=== PATIENT | female | born 1930 | race Caucasian/White ===

== ENCOUNTER 2016-09-21 19:06 | Emergency (ER) | payer MEDICARE, BC ==
--- NOTE | 2016-09-21 20:59 | EDM.PDOC ---
ED HISTORY OF PRESENT ILLNESS - General Chief Complaint: Respiratory Problem Stated Complaint: Shortness of Breath Time Seen by Provider: 09/21/16 20:23 Source of Information: Reports: Patient, Family, RN, RN notes reviewed History Limitations: Reports: No limitations - History of Present Illness INITIAL COMMENTS - FREE TEXT/NARRATIVE: Patient presents to the ED at [facility] complaining of shortness of breath that started early today. Patient has a history of CHF and Pneumonia. Family is concerned "there may be trouble." Daughter states the patient took her morning medications later this afternoon. No cough. No chest pain. Patient has not noticed any increase in LE edema. Symptom Onset Date: 09/21/16 Timing/Duration: Reports: Getting worse Severity: mild Location, General: Reports: chest - Related Data Allergies/ADRs: Allergies Allergy/AdvReac Type Severity Reaction Status Date / Time atorvastatin calcium Allergy Other Verified 04/25/16 21:35 [From Lipitor] Home Meds: Home Meds Levothyroxine [Synthroid] 88 mcg PO ACBREAKFAST 08/14/14 [History] Metoprolol Succinate 50 mg PO DAILY 08/14/14 [History] Donepezil [Aricept] 10 mg PO BEDTIME 01/28/15 [History] amLODIPine [Norvasc] 5 mg PO DAILY tablet 02/03/15 [Rx] Loperamide [Imodium] 2 mg PO BEDTIME 02/14/15 [History] Potassium Chloride [Klor-Con M20] 20 meq PO DAILY 02/14/15 [History] Nystatin [Nystatin Crm] 15 gm TOP TID 04/25/16 [History] Acetaminophen [Tylenol] 650 mg PO Q4H PRN 04/29/16 [History] Furosemide 10 mg PO QAM 04/30/16 [History] Fish Oil/Cabot-3 Fatty Acids [Fish Oil 1,000 MG] 1,000 mg PO BID 05/01/16 [ History] Multivitamin [Daily Multiple Vitamin] 1 tab PO QPM 05/01/16 [History] Past Medical History HEENT History: Reports: Hard of hearing, Impaired vision Cardiovascular History: Reports: Heart Failure, High cholesterol, Hypertension Respiratory History: Reports: None Gastrointestinal History: Reports: Other (see below) Other Gastrointestinal History: lymphocytic colitis Genitourinary History: Reports: Chronic renal insuffiency Other OB/BYN History: x2, hysterectomy Musculoskeletal History: Reports: Other (see below) Other Musculoskeletal History: R leg with pins and plates long time ago. Neurological History: Reports: Other (see below) Other Neuro History: Very mild memory loss and recently on aricept. Psychiatric History: Reports: None Endocrine/Metabolic History: Reports: Hypothyroidism Hematologic History: Reports: None Immunologic History: Reports: None Oncologic (Cancer) History: Reports: Other (see below) Other Oncologic History: forehead, face skin cancer Other Dermatologic History: erick intertrigo beneath breasts - Infectious Disease History Infectious Disease History: Reports: None - Past Surgical History Female Surgical History: Reports: Hysterectomy Musculoskeletal Surgical History: Reports: Other (see below) Other Musculoskeletal Surgeries/Procedures:: fracture surgery Social & Family History - Family History Family Medical History: Noncontributory - Tobacco Use Smoking Status *Q: Unknown Ever Smoked Years of Tobacco use: 20 Second Hand Smoke Exposure: No - Caffeine Use Caffeine Use: Reports: Coffee Caffeine Use Comment: 2 cups in the morining - Alcohol Use Days Per Week of Alcohol Use: 0 - Recreational Drug Use Recreational Drug Use: No - Living Situation & Occupation Living situation: Reports: (Lives alone. Her daughter helps her with meals and checks on her multiple times/week in person and daily by telephone. She has been using a walker for ambulation just since she fell 2 weeks ago. Otherwise independent.) ED ROS GENERAL - Review of Systems Review Of Systems: See Below Constitutional: Reports: weakness. Denies: fever, chills Respiratory: Reports: Shortness of Breath. Denies: Cough, Sputum Cardiovascular: Reports: Dyspnea on exertion. Denies: Chest pain, Palpitations GI/Abdominal: Denies: Abdominal pain, Diarrhea, Nausea, Vomiting Skin: Reports: no symptoms Neurological: Denies: Dizziness, Headache, Numbness, Paresthesia, Tingling ED EXAM, GENERAL - Physical Exam Exam: See Below Exam Limited By: No limitations General Appearance: alert, mild distress Respiratory/Chest: no respiratory distress, crackles, prolonged expiration Cardiovascular: normal peripheral pulses, regular rate, rhythm Peripheral Pulses: 1+: radial (L), radial (R) GI/Abdominal: normal bowel sounds, soft, non tender Neurological: alert, oriented Skin Exam: Warm, Dry, Intact, Normal color, No rash Course - Vital Signs Last Recorded V/S: Last Vital Signs Temp 37.0 C 04/01/17 20:56 Pulse 55 L 09/21/16 20:56 Resp 20 09/21/16 20:56 BP 116/67 09/21/16 20:56 Pulse Ox 97 09/21/16 20:56 - Orders/Labs/Meds Orders: Active Orders 24 hr Category Date Time Status Chest 2V [CR] Stat Exams 09/21/16 20:59 Taken Sodium Chloride 0.9% [Saline Flush] Med 09/21/16 21:00 Active 10 ml FLUSH ASDIRECTED PRN Peripheral IV Insertion Adult [OM.PC] Routine Oth 09/21/16 21:00 Ordered Medication Orders Sodium Chloride (Saline Flush) 10 ml FLUSH ASDIRECTED PRN PRN Reason: Keep Vein Open Labs: Laboratory Tests 09/21/16 09/21/16 Range/Units 21:20 21:20 WBC 7.1 (4.0-10.0) x10^3/uL RBC 3.99 L (4.00-5.50) x10^6/uL Hgb 12.2 (12.0-16.0) g/dL Hct 36.8 (33.0-47.0) % MCV 92.2 (78.0-93.0) fL MCH 30.6 (26.0-32.0) pg MCHC 33.2 (32.0-36.0) g/dL RDW Coeff of Tyrell 14.5 (10.0-15.0) % Plt Count 229 (130-400) x10^3/uL Neut % (Auto) 63.6 (50.0-80.0) % Lymph % (Auto) 23.4 L (25.0-50.0) % [place] % (Auto) 10.5 (2.0-11.0) % Eos % (Auto) 2.1 (0.0-4.0) % Baso % (Auto) 0.4 (0.2-1.2) % Sodium 144 (136-145) mmol/L Potassium 4.6 (3.5-5.1) mmol/L Chloride 108 H (98-107) mmol/L Carbon Dioxide 25 (21-32) mmol/L BUN 31 H (7-18) mg/dL Creatinine 1.2 H (0.55-1.02) mg/dL Est Cr Clr Drug Dosing 34.57 mL/min Estimated GFR (MDRD) 42 Glucose 92 (74-106) mg/dL Calcium 9.1 (8.5-10.1) mg/dL Corrected Calcium 9.74 (8.5-10.1) mg/dL Phosphorus 4.9 H (2.6-4.7) mg/dL Magnesium 2.2 (1.8-2.4) mg/dL Total Bilirubin 0.2 (0.2-1.0) mg/dL AST 13 L (15-37) U/L ALT 28 (14-59) U/L Alkaline Phosphatase 70 (46-116) U/L Creatine Kinase 72 (26-192) U/L Creatine Kinase Index 2.5 (0.0-4.0) % CK-MB (CK-2) 1.8 (0.0-3.6) ng/mL Troponin I < 0.017 (<=0.056) ng/mL B-Natriuretic Peptide 475 H (<=450) pg/mL Total Protein 6.7 (6.4-8.2) g/dL Albumin 3.2 L (3.4-5.0) g/dL Globulin 3.5 Albumin/Globulin Ratio 0.91 Meds: Medications Generic Name Dose Route Start Last Admin Trade Name Freq PRN Reason Stop Dose Admin Sodium Chloride 10 ml 09/21/16 21:00 Saline Flush FLUSH ASDIRECTED PRN Keep Vein Open - Radiology Interpretation Free Text/Narrative:: Mild cardiomegaly, unchanged No vascular congestion The lungs are clear Mild elevation of left hemidiaphragm Bones unremarkable No pleural effusion Departure - Departure Time of Disposition: 22:30 Disposition: Home, Self-Care 01 Condition: good Clinical Impression: Shortness of breath Congestive heart failure Qualifiers: Congestive heart failure type: unspecified congestive heart failure type Congestive heart failure chronicity: chronic Qualified Code(s): I50.9 - Heart failure, unspecified Instructions: Shortness of Breath, [id number], Heart Failure Referrals: Meme Camargo PA-C [Primary Care Provider] - Forms: ED Department Discharge Additional Instructions: 1. Stay well hydrated and rest 2. Continue your same medications without any changes 3. See your Primary as symptoms warrant - Problem List Review Problem List Initiated/Reviewed/Updated: Yes - My Orders Last 24 Hours: My Active Orders 09/21/16 20:59 Chest 2V [CR] Stat 09/21/16 21:00 Sodium Chloride 0.9% [Saline Flush] 10 ml FLUSH ASDIRECTED PRN Peripheral IV Insertion Adult [OM.PC] Routine - Assessment/Plan Last 24 Hours: My Active Orders 09/21/16 20:59 Chest 2V [CR] Stat 09/21/16 21:00 Sodium Chloride 0.9% [Saline Flush] 10 ml FLUSH ASDIRECTED PRN Peripheral IV Insertion Adult [OM.PC] Routine
[2016-09-21] MEDS ORDERED: Sodium Chloride 0.9% 10 ML Syringe FLUSH PRN (21:00)
[2016-09-21 21:01] VITALS: BP 116/67
[2016-09-21 22:07] LABS: CHLORIDE,CL 108 mmol/L (98-107); SODIUM,NA 144 mmol/L (136-145)
== END 2016-09-21 23:00 | disposition home or self-care (01) ==
LOC: VM.ED 19:06
DX: I50.9 Heart failure, unspecified (principal); E78.00 Pure hypercholesterolemia, unspecified; I10 Essential (primary) hypertension; E03.9 Hypothyroidism, unspecified; Z90.710 Acquired absence of both cervix and uterus; Z79.899 Other long term (current) drug therapy
CPT/HCPCS: 36415; 71020; 80053; 82550; 82553; 83735; 83880; 84100; 84484; 85025; 99284-GF; 99285

== ENCOUNTER 2016-10-10 13:25 | Emergency (ER) | payer MEDICARE, BC ==
[2016-10-10] MEDS ORDERED: GI Cocktail Oral Solution 30 ML PO ONE (13:39)
[2016-10-10 13:50] VITALS: BP 152/54
--- NOTE | 2016-10-11 08:42 | ER ---
Date of Service: 10/10/2016 SUBJECTIVE: Maria Antonia presents to the emergency room with complaints of epigastric pain. She states that she had similar discomfort several weeks ago and states the discomfort resolved on its own. She states that today she had eaten some chicken salad and began experiencing this discomfort. She states that she took Maalox and Tums at the onset of the discomfort and reported a rapid improvement in the discomfort. She states the discomfort again was located in her epigastric region. It did not radiate into her shoulders or jaw. She states that she does still have her gallbladder and has no history of cholecystitis or other hepatobiliary problems. PAST MEDICAL HISTORY: 1. GERD. 2. Congestive heart failure. 3. Cognitive impairment. 4. Chronic kidney disease. 5. Lymphocytic colitis. 6. Hypothyroidism. 7. Hyperlipidemia. 8. Hypertension. 9. Chronic back pain. MEDICATIONS: 1. Amlodipine 5 mg daily. 2. Potassium chloride 20 mEq p.o. daily. 3. Multivitamin 1 tablet p.o. q.p.m. 4. Metoprolol succinate 50 mg p.o. daily. 5. Imodium 2 mg p.o. at bedtime. 6. Synthroid 88 mcg p.o. at breakfast. 7. Furosemide 10 mg p.o. q.a.m. 8. Fish oil/Mayer 3 fatty acids 1000 mg p.o. b.i.d. 9. Aricept 10 mg p.o. at bedtime. 10.Acetaminophen 650 mg p.o. q.4 hours p.r.n. ALLERGIES: Atorvastatin. REVIEW OF SYSTEMS: General: Denies any fever or chills. HEENT: No sore throat, rhinorrhea, or congestion. Respiratory: No shortness of breath. Cardiac: Denies any substernal chest pain. GI: Please see history of present illness. Denies any melena, hematochezia, or hematemesis. : Denies any dysuria. Musculoskeletal: No myalgias or arthralgias. Neurologic: No fainting, blackouts, or lightheadedness. PHYSICAL EXAMINATION: General: This is an 86-year-old female patient, in no acute distress. Vital Signs: Blood pressure is 152/52, pulse rate 59, temperature is 36.8, and respiratory rate is 16. Skin: Warm, pink, and dry. HEENT. Head is normocephalic, atraumatic. Eyes, PERRLA. Extraocular movements are intact. Mouth, oral mucosa is moist. No erythema or exudate. No hypopharynx. Neck: Supple without masses. There is no lymphadenopathy. Lungs: Clear to auscultation. Heart: Regular rate and rhythm. No murmurs. Abdomen: Soft, nontender on palpation. There is no masses noted. There is no hepatosplenomegaly noted. Extremities: Without edema. Remainder of her physical examination is within normal limits. LABORATORY DATA: WBCs 7.7, hemoglobin is 13.0, and platelets are 226. Coags, PT is 9.5, INR is 0.8. Sodium is 142, potassium is 4.2, chloride is 105, bicarb is 29, BUN is 28, creatinine is 1.2, creatinine clearance is 26.81, GFR is 42, glucose 152, calcium is 9.0, corrected calcium is 9.56, total bilirubin is 0.6. AST elevated at 298. ALT elevated at 159. Alkaline phosphatase is 139, total protein is 6.8, albumin is 3.3, amylase is 77, and lipase is 238. ASSESSMENT: 1. Epigastric pain, resolved. 2. Elevated LFTs. PLAN: With the rapid resolution of her symptoms after taking antacids, it certainly appears that the cause of this discomfort is of a gastrointestinal ideology. However, her AST and ALT are both elevated and should be worked up as well. I did arrange for her to undergo a gallbladder ultrasound on an outpatient basis next week and follow up in the clinic. She is also to return to the emergency room if she develops recurrence of her symptoms that are not amenable to [id number] medications. All questions were answered. MWK: 10/10/2016 15:20:26 MODL: 10/10/2016 21:16:30 /[id number]
== END 2016-10-10 15:15 | disposition home or self-care (01) ==
LOC: VM.ED 13:25
DX: R10.13 Epigastric pain (principal); R79.89 Other specified abnormal findings of blood chemistry; K21.9 Gastro-esophageal reflux disease without esophagitis; I13.0 Hypertensive heart and chronic kidney disease with heart failure and stage 1 through stage 4 chronic kidney disease, or unspecified chronic kidney disease; I50.9 Heart failure, unspecified; N18.9 Chronic kidney disease, unspecified; E78.5 Hyperlipidemia, unspecified; Z79.899 Other long term (current) drug therapy
CPT/HCPCS: 36415; 80053; 82150; 83690; 85025; 85610; 99285; A9270; 99283-GF

== ENCOUNTER 2016-11-06 17:25 | Emergency (ER) | payer MEDICARE, BC ==
--- NOTE | 2016-11-06 18:17 | EDM.PDOC ---
[id number]: Upper Abdominal Pain Time Seen by Provider: 11/06/16 17:43 Source of Information: Reports: Patient History Limitations: Reports: No Limitations - History of Present Illness INITIAL COMMENTS - FREE TEXT/NARRATIVE: Patient presents with upper abdominal pain since approximately 3:30. She also described some pain between her shoulder blades. She does have a history of gall stones that are being managed with dietary changes. Surgery was being reserved for emergent due to her risk factors. Upon arrival, she denies having pain. She denies fever, chills, nausea, vomiting, chest pain, she does endorse some chest pressure. Maria Antonia denies any blood in the urine or stool. Denies diarrhea. n Brought here via EMS Onset Date: 10/15/16 Duration: Intermittent Location: Reports: Abdomen Quality: Reports: Ache, Pressure Severity: Moderate Worsens with: Reports: None - Related Data Allergies Allergy/AdvReac Type Severity Reaction Status Date / Time atorvastatin calcium Allergy Other Verified 11/06/16 17:58 [From Lipitor] Home Meds: Home Meds Levothyroxine [Synthroid] 88 mcg PO ACBREAKFAST 08/14/14 [History] Metoprolol Succinate 50 mg PO DAILY 08/14/14 [History] Donepezil [Aricept] 10 mg PO BEDTIME 01/28/15 [History] amLODIPine [Norvasc] 5 mg PO DAILY tablet 02/03/15 [Rx] Loperamide [Imodium] 2 mg PO BID PRN 02/14/15 [History] Potassium Chloride [Klor-Con M20] 20 meq PO DAILY 02/14/15 [History] Furosemide 10 mg PO QAM 04/30/16 [History] Fish Oil/Bromide-3 Fatty Acids [Fish Oil 1,000 MG] 1,000 mg PO BID 05/01/16 [ History] Multivitamin [Daily Multiple Vitamin] 1 tab PO QPM 05/01/16 [History] Past Medical History HEENT History: Reports: Hard of Hearing, Impaired Vision Cardiovascular History: Reports: Heart Failure, High Cholesterol, Hypertension Respiratory History: Reports: None Gastrointestinal History: Reports: Other (See Below) Other Gastrointestinal History: lymphocytic colitis Genitourinary History: Reports: Chronic Renal Insuffiency Other OB/BYN History: x2, hysterectomy Musculoskeletal History: Reports: Other (See Below) Other Musculoskeletal History: R leg with pins and plates long time ago. 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 Psychiatric History: Reports: None Endocrine/Metabolic History: Reports: Hypothyroidism Hematologic History: Reports: None Immunologic History: Reports: None Oncologic (Cancer) History: Reports: Other (See Below) Other Oncologic History: forehead, face skin cancer Other Dermatologic History: erick intertrigo beneath breasts - Infectious Disease History Infectious Disease History: Reports: None - Past Surgical History Musculoskeletal Surgical History: Reports: Other (See Below) Social & Family History - Family History Family Medical History: Noncontributory - Tobacco Use Smoking Status *Q: Never Smoker Years of Tobacco use: 20 Second Hand Smoke Exposure: No - Caffeine Use Caffeine Use: Reports: Coffee Caffeine Use Comment: 2 cups in the morining - Alcohol Use Days Per Week of Alcohol Use: 0 - Recreational Drug Use Recreational Drug Use: No - Living Situation & Occupation Living situation: Reports: ED ROS GENERAL - Review of Systems Review Of Systems: ROS reveals no pertinent complaints other than HPI. ED EXAM, GI/ABD - Physical Exam Exam: See Below Exam Limited By: Other (hard of hearing, bilateral hearing aids) General Appearance: Alert, WD/WN, No Apparent Distress Eyes: Bilateral: EOMI Ears: Normal External Exam, Normal TMs, Hearing Loss Throat/Mouth: Normal Inspection, Normal Oropharynx Head: Atraumatic, Normocephalic Neck: Normal Inspection Respiratory/Chest: No Respiratory Distress, Lungs Clear, Normal Breath Sounds Cardiovascular: Normal Peripheral Pulses, Regular Rate, Rhythm, No Edema, No Gallop GI/Abdominal: Normal Bowel Sounds, Soft, Non-Tender, No Organomegaly, No Distention, No Abnormal Bruit Extremities: Normal Inspection, Normal Range of Motion, Non-Tender, Normal Capillary Refill Neurological: Alert, Oriented, CN II-XII Intact, Normal Cognition, Normal Gait Psychiatric: Normal Affect, Normal Mood Skin Exam: Warm, Dry, Intact Lymphatic: No Adenopathy EKG INTERPRETATION EKG Date: 11/06/16 Time: 17:33 Rhythm: other (Sinus Vicente) Rate (beats/min): 57 [place]: normal P-wave: present QRS: normal ST-T: normal QT: normal Comparison: no change EKG Interpretation Comments: 1. Sinus bradycardia 2. Nonspecific t-wave abnormality 3. Borderline ECG Course - Vital Signs Last Recorded V/S: Last Vital Signs Temp 36.1 C 11/06/16 17:45 Pulse 61 11/06/16 17:45 Resp 16 11/06/16 17:45 BP 154/79 H 11/06/16 18:28 Pulse Ox 97 11/06/16 17:45 - Orders/Labs/Meds Orders: Active Orders 24 hr Category Date Time Status EKG Documentation Completion [RC] ROUTINE Care 11/06/16 17:43 Active Chest 1V Frontal [CR] Stat Exams 11/06/16 17:43 Taken Labs: Laboratory Tests 11/06/16 11/06/16 11/06/16 Range/Units 17:55 17:55 17:55 WBC 6.9 (4.0-10.0) x10^3/uL RBC 4.43 (4.00-5.50) x10^6/uL Hgb 13.5 (12.0-16.0) g/dL Hct 41.0 (33.0-47.0) % MCV 92.6 (78.0-93.0) fL MCH 30.5 (26.0-32.0) pg MCHC 32.9 (32.0-36.0) g/dL RDW Coeff of Tyrell 14.1 (10.0-15.0) % Plt Count 227 (130-400) x10^3/uL Neut % (Auto) 68.4 (50.0-80.0) % Lymph % (Auto) 20.2 L (25.0-50.0) % [place] % (Auto) 9.1 (2.0-11.0) % Eos % (Auto) 2.0 (0.0-4.0) % Baso % (Auto) 0.3 (0.2-1.2) % PT 9.5 L (10.0-12.8) SEC INR 0.8 L (2.0-3.5) Sodium 142 (136-145) mmol/L Potassium 4.4 (3.5-5.1) mmol/L Chloride 106 (98-107) mmol/L Carbon Dioxide 29 (21-32) mmol/L BUN 27 H (7-18) mg/dL Creatinine 1.4 H (0.55-1.02) mg/dL Est Cr Clr Drug Dosing 22.98 mL/min Estimated GFR (MDRD) 35 Glucose 118 H (74-106) mg/dL Calcium 9.3 (8.5-10.1) mg/dL Corrected Calcium 9.86 (8.5-10.1) mg/dL Total Bilirubin 0.4 (0.2-1.0) mg/dL AST 188 H (15-37) U/L ALT 104 H (14-59) U/L Alkaline Phosphatase 97 (46-116) U/L Creatine Kinase 54 (26-192) U/L Creatine Kinase Index 2.4 (0.0-4.0) % CK-MB (CK-2) 1.3 (0.0-3.6) ng/mL POC Troponin I (0.00-0.08) ng/mL C-Reactive Protein < 0.2 (<=0.9) mg/dL B-Natriuretic Peptide 285 (<=450) pg/mL Total Protein 6.9 (6.4-8.2) g/dL Albumin 3.3 L (3.4-5.0) g/dL Globulin 3.6 Albumin/Globulin Ratio 0.92 Amylase (25-115) U/L Lipase (73-393) U/L TSH, Ultra Sensitive 0.391 (0.358-3.74) uIU/mL 11/06/16 11/06/16 Range/Units 17:55 18:21 WBC (4.0-10.0) x10^3/uL RBC (4.00-5.50) x10^6/uL Hgb (12.0-16.0) g/dL Hct (33.0-47.0) % MCV (78.0-93.0) fL MCH (26.0-32.0) pg MCHC (32.0-36.0) g/dL RDW Coeff of Tyrell (10.0-15.0) % Plt Count (130-400) x10^3/uL Neut % (Auto) (50.0-80.0) % Lymph % (Auto) (25.0-50.0) % [place] % (Auto) (2.0-11.0) % Eos % (Auto) (0.0-4.0) % Baso % (Auto) (0.2-1.2) % PT (10.0-12.8) SEC INR (2.0-3.5) Sodium (136-145) mmol/L Potassium (3.5-5.1) mmol/L Chloride (98-107) mmol/L Carbon Dioxide (21-32) mmol/L BUN (7-18) mg/dL Creatinine (0.55-1.02) mg/dL Est Cr Clr Drug Dosing mL/min Estimated GFR (MDRD) Glucose (74-106) mg/dL Calcium (8.5-10.1) mg/dL Corrected Calcium (8.5-10.1) mg/dL Total Bilirubin (0.2-1.0) mg/dL AST (15-37) U/L ALT (14-59) U/L Alkaline Phosphatase (46-116) U/L Creatine Kinase (26-192) U/L Creatine Kinase Index (0.0-4.0) % CK-MB (CK-2) (0.0-3.6) ng/mL POC Troponin I 0.00 (0.00-0.08) ng/mL C-Reactive Protein (<=0.9) mg/dL B-Natriuretic Peptide (<=450) pg/mL Total Protein (6.4-8.2) g/dL Albumin (3.4-5.0) g/dL Globulin Albumin/Globulin Ratio Amylase 1804 H (25-115) U/L Lipase 96886 H (73-393) U/L TSH, Ultra Sensitive (0.358-3.74) uIU/mL Meds: Medications Discontinued Medications Generic Name Dose Route Start Last Admin Trade Name [place] PRN Reason Stop Dose Admin Hydrocodone Bitart/Acetaminophen 1 packet 11/06/16 18:53 11/06/16 18:57 Take Home: Acetam/Hydrocodon 325-5 Mg, 5 Pack PO 11/06/16 18:54 1 packet ONETIME ONE Administration Al Hydroxide/Mg Hydroxide 30 ml 11/06/16 18:39 11/06/16 18:50 Gi Cocktail PO 11/06/16 18:40 30 ml ONETIME ONE Administration Ondansetron HCl 1 packet 11/06/16 18:53 11/06/16 18:57 Take Home: Ondansetron Odt 4 Mg, 2 Tab Pack PO 11/06/16 18:54 1 packet ONETIME ONE Administration Departure - Departure Time of Disposition: 19:11 Disposition: Home, Self-Care 01 Clinical Impression: Cholecystitis - Discharge Information Instructions: Cholecystitis, [id number] Referrals: Neida Camargo, [Primary Care Provider] - Forms: ED Department Discharge Additional Instructions: You should follow up with Dr. Camargo regarding your gall stones. Your liver enzymes were elevated today but were lower than when you were seen by Eldon Wren in September. However your amylase and lipase levels are drastically increased since your last visit. You should have a discussion with Dr. Camargo regarding surgery options. I don't know that holding off surgery will be possible going forward. Please take your medication as prescribed for pain and nausea Call with any questions or concerns. - Problem List & Annotations (1) Cholecystitis SNOMED Code(s): 13569795 Code(s): K81.9 - CHOLECYSTITIS, UNSPECIFIED Status: Acute Priority: Medium - Problem List Review Problem List Initiated/Reviewed/Updated: Yes - My Orders Last 24 Hours: My Active Orders 11/06/16 17:43 EKG Documentation Completion [RC] ROUTINE Chest 1V Frontal [CR] Stat - Assessment/Plan Last 24 Hours: My Active Orders 11/06/16 17:43 EKG Documentation Completion [RC] ROUTINE Chest 1V Frontal [CR] Stat Assessment:: Cholecystitis Plan: You should follow up with Dr. Camargo regarding your gall stones. Your liver enzymes were elevated today but were lower than when you were seen by Eldon Wren in September. However your amylase and lipase levels are drastically increased since your last visit. You should have a discussion with Dr. Camargo regarding surgery options. I don't know that holding off surgery will be possible going forward. Please take your medication as prescribed for pain and nausea Call with any questions or concerns.
[2016-11-06 18:29] VITALS: BP 154/79
[2016-11-06 18:35] LABS: CHLORIDE,CL 106 mmol/L (98-107); SODIUM,NA 142 mmol/L (136-145)
[2016-11-06] MEDS ORDERED: GI Cocktail Oral Solution 30 ML PO ONE (18:39)
[2016-11-06] MEDS ORDERED: Take Home: Ondansetron 4 MG Tab.DIS, 2 Tab Pack PO ONE (18:53)
[2016-11-06] MEDS ORDERED: Take Home: Acetaminophen/HYDROcodone 325-5 MG, 5 Tab Pack PO ONE (18:53)
== END 2016-11-06 19:11 | disposition home or self-care (01) ==
LOC: VM.ED 17:25
DX: K81.9 Cholecystitis, unspecified (principal); I13.0 Hypertensive heart and chronic kidney disease with heart failure and stage 1 through stage 4 chronic kidney disease, or unspecified chronic kidney disease; I50.9 Heart failure, unspecified; N18.9 Chronic kidney disease, unspecified; E78.00 Pure hypercholesterolemia, unspecified; E03.9 Hypothyroidism, unspecified; Z88.8 Allergy status to other drugs, medicaments and biological substances; Z79.899 Other long term (current) drug therapy
CPT/HCPCS: 36415; 71010; 80053; 82150; 82550; 82553; 83690; 83880; 84443; 84484; 85025; 85610; 86140; 93005; 99285; A9270; 99283-GF

== ENCOUNTER 2016-12-15 15:51 | Emergency (ER) | payer MEDICARE, BC ==
[2016-12-15] MEDS ORDERED: Sodium Chloride 0.9% 10 ML Syringe FLUSH PRN (16:20)
--- NOTE | 2016-12-15 16:28 | EDM.PDOC ---
ED HPI GENERAL MEDICAL PROBLEM - General Chief Complaint: Back Pain or Injury Stated Complaint: back pain Time Seen by Provider: 12/15/16 15:54 Source of Information: Reports: Patient History Limitations: Reports: No Limitations - History of Present Illness INITIAL COMMENTS - FREE TEXT/NARRATIVE: Patient is here for complaints of right sided back pain. Pain started today. Recently seen here in October for abdominal pain from her gallstones. She has since had surgery to remove her gallbladder. She also states she is "fuzzy". Her blood pressure is elevated in the 160's today. Denies history of AL, CVA. She denies fever, chills, SOB, chest pain. No abdominal pain, nausea, vomiting , diarrhea. No blood in urine or stool. Onset: Gradual Duration: Intermittent Location: Reports: Back Quality: Reports: Ache Severity: Mild Improves with: Reports: None Worsens with: Reports: None Associated Symptoms: Reports: No Other Symptoms Middle Back Pain Score (Numeric/FACES): 5 - Related Data Allergies Allergy/AdvReac Type Severity Reaction Status Date / Time Antihistamines - Alkylamine Allergy Cannot Verified 12/15/16 16:00 Remember atorvastatin calcium Allergy Other Verified 12/15/16 15:58 [From Lipitor] diphenhydramine Allergy Cannot Verified 12/15/16 16:00 [From Benadryl] Remember Home Meds: Home Meds Levothyroxine [Synthroid] 88 mcg PO ACBREAKFAST 08/14/14 [History] Metoprolol Succinate 50 mg PO DAILY 08/14/14 [History] Donepezil [Aricept] 10 mg PO BEDTIME 01/28/15 [History] amLODIPine [Norvasc] 5 mg PO DAILY tablet 02/03/15 [Rx] Loperamide [Imodium] 2 mg PO BID PRN 02/14/15 [History] Potassium Chloride [Klor-Con M20] 20 meq PO DAILY 02/14/15 [History] Furosemide 10 mg PO QAM 04/30/16 [History] Fish Oil/[place]-3 Fatty Acids [Fish Oil 1,000 MG] 1,000 mg PO BID 05/01/16 [ History] Multivitamin [Daily Multiple Vitamin] 1 tab PO QPM 05/01/16 [History] Acetaminophen [Tylenol] 650 mg PO Q4H PRN 12/15/16 [History] oxyCODONE 5 mg PO Q6H PRN 12/15/16 [History] Past Medical History HEENT History: Reports: Hard of Hearing, Impaired Vision Cardiovascular History: Reports: Heart Failure, High Cholesterol, Hypertension Respiratory History: Reports: None Gastrointestinal History: Reports: Other (See Below) Other Gastrointestinal History: lymphocytic colitis Genitourinary History: Reports: Chronic Renal Insuffiency Other OB/BYN History: x2, hysterectomy Musculoskeletal History: Reports: Other (See Below) Other Musculoskeletal History: R leg with pins and plates long time ago. 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 Psychiatric History: Reports: None Endocrine/Metabolic History: Reports: Hypothyroidism Hematologic History: Reports: None Immunologic History: Reports: None Oncologic (Cancer) History: Reports: Other (See Below) Other Oncologic History: forehead, face skin cancer Other Dermatologic History: erick intertrigo beneath breasts - Infectious Disease History Infectious Disease History: Reports: None - Past Surgical History Musculoskeletal Surgical History: Reports: Other (See Below) Social & Family History - Family History Family Medical History: Noncontributory - Tobacco Use Smoking Status *Q: Former Smoker Years of Tobacco use: 20 Used Tobacco, but Quit: No Second Hand Smoke Exposure: No - Caffeine Use Caffeine Use: Reports: Coffee Caffeine Use Comment: 2 cups in the morining - Alcohol Use Days Per Week of Alcohol Use: 0 - Recreational Drug Use Recreational Drug Use: No - Living Situation & Occupation Living situation: Reports: ED ROS GENERAL - Review of Systems Review Of Systems: See Below Constitutional: Reports: No Symptoms HEENT: Reports: No Symptoms Respiratory: Reports: No Symptoms Cardiovascular: Reports: No Symptoms Endocrine: Reports: No Symptoms GI/Abdominal: Reports: No Symptoms : Reports: No Symptoms Musculoskeletal: Reports: Back Pain Skin: Reports: No Symptoms Neurological: Reports: No Symptoms Psychiatric: Reports: No Symptoms Hematologic/Lymphatic: Reports: No Symptoms Immunologic: Reports: No Symptoms ED EXAM, UPPER BACK/NECK PAIN - Physical Exam Exam: See Below Exam Limited By: No Limitations General Appearance: Alert, WD/WN, No Apparent Distress Eye Exam: Bilateral Eye: EOMI, PERRL Head Exam: Atraumatic, Normocephalic Neck Exam: Non-Tender, Full Range of Motion, Normal Alignment, Normal Inspection Cardiovascular/Respiratory: Regular Rate, Rhythm, No M/R/G, Normal Peripheral Pulses, Normal Breath Sounds, No Respiratory Distress GI/Abdominal: Normal Bowel Sounds, Soft, Non-Tender Back Exam: Normal Inspection Extremities: Normal Inspection, Normal Range of Motion, Non-Tender, No Pedal Edema, Normal Capillary Refill 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 As Tested, No Motor/Sensory Deficits, Alert, Normal Mood/Affect, Oriented x 3 Psychiatric: Normal Affect, Normal Mood Skin Exam: Normal Color, Warm/Dry Lymphatic: No Adenopathy Course - Vital Signs Last Recorded V/S: Last Vital Signs Temp 36.6 C 12/15/16 16:03 Pulse 55 L 12/15/16 18:35 Resp 16 12/15/16 17:55 BP 175/78 H 12/15/16 18:35 Pulse Ox 96 12/15/16 17:55 - Orders/Labs/Meds Orders: Active Orders 24 hr Category Date Time Status EKG Documentation Completion [RC] ROUTINE Care 12/15/16 16:20 Active Chest 2V [CR] Stat Exams 12/15/16 16:28 Taken Chest PE [Ang Chest] [CT] Stat Exams 12/15/16 18:03 Taken CULTURE URINE [RM] Stat Lab 12/15/16 17:56 Received Sodium Chloride 0.9% [Normal Saline] 1,000 ml Med 12/15/16 18:30 Active IV ASDIRECTED Sodium Chloride 0.9% [Normal Saline] 100 ml Med 12/15/16 19:00 Active IV ASDIRECTED Sodium Chloride 0.9% [Saline Flush] Med 12/15/16 16:20 Active 10 ml FLUSH ASDIRECTED PRN Saline Lock Insert [OM.PC] Routine Oth 12/15/16 16:20 Ordered Medication Orders Sodium Chloride (Normal Saline) 1,000 mls @ 150 mls/hr IV ASDIRECTED RAVINDER Last Admin: 12/15/16 18:54 Dose: 150 mls/hr Sodium Chloride (Normal Saline) 100 mls @ 3 mls/sec IV ASDIRECTED RAVINDER Last Admin: 12/15/16 19:25 Dose: 3 mls/sec Sodium Chloride (Saline Flush) 10 ml FLUSH ASDIRECTED PRN PRN Reason: Keep Vein Open Labs: Laboratory Tests 06/25/17 06/25/17 06/25/17 Range/Units 16:48 16:48 16:48 WBC 7.3 (4.0-10.0) x10^3/uL RBC 3.96 L (4.00-5.50) x10^6/uL Hgb 12.1 (12.0-16.0) g/dL Hct 36.3 (33.0-47.0) % MCV 91.7 (78.0-93.0) fL MCH 30.6 (26.0-32.0) pg MCHC 33.3 (32.0-36.0) g/dL RDW Coeff of Tyrell 13.7 (10.0-15.0) % Plt Count 241 (130-400) x10^3/uL Neut % (Auto) 62.7 (50.0-80.0) % Lymph % (Auto) 24.2 L (25.0-50.0) % Reeves % (Auto) 9.6 (2.0-11.0) % Eos % (Auto) 3.0 (0.0-4.0) % Baso % (Auto) 0.5 (0.2-1.2) % PT 9.7 L (10.0-12.8) SEC INR 0.9 L (2.0-3.5) D-Dimer, Quantitative 0.98 H (<=0.58) mg/LFEU Sodium 141 (136-145) mmol/L Potassium 4.3 (3.5-5.1) mmol/L Chloride 106 (98-107) mmol/L Carbon Dioxide 29 (21-32) mmol/L BUN 30 H (7-18) mg/dL Creatinine 1.3 H (0.55-1.02) mg/dL Est Cr Clr Drug Dosing 23.11 mL/min Estimated GFR (MDRD) 39 Glucose 127 H (74-106) mg/dL Calcium 8.4 L (8.5-10.1) mg/dL Corrected Calcium 9.20 (8.5-10.1) mg/dL Total Bilirubin 0.2 (0.2-1.0) mg/dL AST 15 (15-37) U/L ALT 25 (14-59) U/L Alkaline Phosphatase 71 (46-116) U/L Creatine Kinase 38 (26-192) U/L Creatine Kinase Index 1.8 (0.0-4.0) % CK-MB (CK-2) 0.7 (0.0-3.6) ng/mL Troponin I < 0.017 (<=0.056) ng/mL C-Reactive Protein (<=0.9) mg/dL B-Natriuretic Peptide 363 (<=450) pg/mL Total Protein 6.5 (6.4-8.2) g/dL Albumin 3.0 L (3.4-5.0) g/dL Globulin 3.5 Albumin/Globulin Ratio 0.86 Urine Color (YELLOW) Urine Appearance (CLEAR) Urine pH (5.0-8.0) Ur Specific [place] Urine Protein (NEGATIVE) mg/dL Urine Glucose (UA) (NEGATIVE) mg/dL Urine Ketones (NEGATIVE) mg/dL Urine Occult Blood (NEGATIVE) Urine Nitrite (NEGATIVE) Urine Bilirubin (NEGATIVE) Urine Urobilinogen (0.2) EU/dL Ur Leukocyte Esterase (NEGATIVE) Urine RBC (NOT SEEN) /HPF Urine WBC (NOT SEEN) /HPF Ur Squamous Epith Cells (NEGATIVE) /HPF Urine Bacteria (NEGATIVE) /HPF Hyaline Casts (NEGATIVE) /HPF Urine Mucus (NEGATIVE) /LPF Urine Yeast (Budding) 12/15/16 12/15/16 Range/Units 16:48 17:56 WBC (4.0-10.0) x10^3/uL RBC (4.00-5.50) x10^6/uL Hgb (12.0-16.0) g/dL Hct (33.0-47.0) % MCV (78.0-93.0) fL MCH (26.0-32.0) pg MCHC (32.0-36.0) g/dL RDW Coeff of Tyrell (10.0-15.0) % Plt Count (130-400) x10^3/uL Neut % (Auto) (50.0-80.0) % Lymph % (Auto) (25.0-50.0) % [place]eves % (Auto) (2.0-11.0) % Eos % (Auto) (0.0-4.0) % Baso % (Auto) (0.2-1.2) % PT (10.0-12.8) SEC INR (2.0-3.5) D-Dimer, Quantitative (<=0.58) mg/LFEU Sodium (136-145) mmol/L Potassium (3.5-5.1) mmol/L Chloride (98-107) mmol/L Carbon Dioxide (21-32) mmol/L BUN (7-18) mg/dL Creatinine (0.55-1.02) mg/dL Est Cr Clr Drug Dosing mL/min Estimated GFR (MDRD) Glucose (74-106) mg/dL Calcium (8.5-10.1) mg/dL Corrected Calcium (8.5-10.1) mg/dL Total Bilirubin (0.2-1.0) mg/dL AST (15-37) U/L ALT (14-59) U/L Alkaline Phosphatase (46-116) U/L Creatine Kinase (26-192) U/L Creatine Kinase Index (0.0-4.0) % CK-MB (CK-2) (0.0-3.6) ng/mL Troponin I (<=0.056) ng/mL C-Reactive Protein < 0.2 (<=0.9) mg/dL B-Natriuretic Peptide (<=450) pg/mL Total Protein (6.4-8.2) g/dL Albumin (3.4-5.0) g/dL Globulin Albumin/Globulin Ratio Urine Color Yellow (YELLOW) Urine Appearance Clear (CLEAR) Urine pH 5.5 (5.0-8.0) Ur Specific [place] 1.025 Urine Protein Negative (NEGATIVE) mg/dL Urine Glucose (UA) Negative (NEGATIVE) mg/dL Urine Ketones Negative (NEGATIVE) mg/dL Urine Occult Blood Negative (NEGATIVE) Urine Nitrite Negative (NEGATIVE) Urine Bilirubin Negative (NEGATIVE) Urine Urobilinogen 0.2 (0.2) EU/dL Ur Leukocyte Esterase Trace H (NEGATIVE) Urine RBC 0-5 (NOT SEEN) /HPF Urine WBC 10-20 H (NOT SEEN) /HPF Ur Squamous Epith Cells Moderate H (NEGATIVE) /HPF Urine Bacteria Moderate H (NEGATIVE) /HPF Hyaline Casts Few H (NEGATIVE) /HPF Urine Mucus Moderate H (NEGATIVE) /LPF Urine Yeast (Budding) Not seen Meds: Medications Generic Name Dose Route Start Last Admin Trade Name Freq PRN Reason Stop Dose Admin Sodium Chloride 1,000 mls @ 150 mls/hr 12/15/16 18:30 12/15/16 18:54 Normal Saline IV 150 mls/hr ASDIRECTED RAVINDER Administration Sodium Chloride 100 mls @ 3 mls/sec 12/15/16 19:00 12/15/16 19:25 Normal Saline IV 3 mls/sec ASDIRECTED RAVINDER Administration Sodium Chloride 10 ml 12/15/16 16:20 Saline Flush FLUSH ASDIRECTED PRN Keep Vein Open Discontinued Medications Generic Name Dose Route Start Last Admin Trade Name [place] PRN Reason Stop Dose Admin Ceftriaxone Sodium 1 gm 12/15/16 20:20 12/15/16 20:54 Rocephin IVPUSH 12/15/16 20:21 1 gm ONETIME ONE Administration Iopamidol 100 ml 12/15/16 18:53 12/15/16 19:20 Isovue-300 (61%) IVPUSH 12/15/16 18:54 100 ml ONETIME ONE Administration Departure - Departure Time of Disposition: 21:18 Disposition: Home, Self-Care 01 Condition: Good Clinical Impression: Urinary tract infection - Discharge Information Instructions: Pyelonephritis, Adult, [id number], Urinary Tract Infection, Adult, [id number] Forms: ED Department Discharge Additional Instructions: Please follow up with your primary provider as needed. Your testing was negative for any heart issues or blood clot to the lungs. We will let you know if you need to switch from your antibiotic after your urine culture is back. Please call us with any questions or concerns. - Problem List Review Problem List Initiated/Reviewed/Updated: Yes - My Orders Last 24 Hours: My Active Orders 12/15/16 16:20 EKG Documentation Completion [RC] ROUTINE Sodium Chloride 0.9% [Saline Flush] 10 ml FLUSH ASDIRECTED PRN Saline Lock Insert [OM.PC] Routine 12/15/16 16:28 Chest 2V [CR] Stat 12/15/16 17:56 CULTURE URINE [RM] Stat 12/15/16 18:03 Chest PE [Ang Chest] [CT] Stat 12/15/16 18:30 Sodium Chloride 0.9% [Normal Saline] 1,000 ml IV ASDIRECTED 12/15/16 19:00 Sodium Chloride 0.9% [Normal Saline] 100 ml IV ASDIRECTED - Assessment/Plan Last 24 Hours: My Active Orders 12/15/16 16:20 EKG Documentation Completion [RC] ROUTINE Sodium Chloride 0.9% [Saline Flush] 10 ml FLUSH ASDIRECTED PRN Saline Lock Insert [OM.PC] Routine 12/15/16 16:28 Chest 2V [CR] Stat 12/15/16 17:56 CULTURE URINE [RM] Stat 12/15/16 18:03 Chest PE [Ang Chest] [CT] Stat 12/15/16 18:30 Sodium Chloride 0.9% [Normal Saline] 1,000 ml IV ASDIRECTED 12/15/16 19:00 Sodium Chloride 0.9% [Normal Saline] 100 ml IV ASDIRECTED Assessment:: urinary tract infection Plan: Please follow up with your primary provider as needed. Your testing was negative for any heart issues or blood clot to the lungs. We will let you know if you need to switch from your antibiotic after your urine culture is back. Please call us with any questions or concerns.
[2016-12-15 17:26] LABS: CHLORIDE,CL 106 mmol/L (98-107); SODIUM,NA 141 mmol/L (136-145)
[2016-12-15] MEDS ORDERED: Sodium Chloride 0.9% 1,000 ML IV SCH (18:30)
[2016-12-15] MEDS ORDERED: Iopamidol 612 MG/ML 100 ML Bottle IVPUSH ONE (18:53)
[2016-12-15] MEDS ORDERED: Sodium Chloride 0.9% 100 ML IV SCH (19:00)
[2016-12-15 20:12] VITALS: BP 175/78
[2016-12-15] MEDS ORDERED: cefTRIAXone 1 GM Vial IVPUSH ONE (20:20)
== END 2016-12-15 21:18 | disposition home or self-care (01) ==
LOC: VM.ED 15:51
DX: N39.0 Urinary tract infection, site not specified (principal); H54.7 Unspecified visual loss; I13.0 Hypertensive heart and chronic kidney disease with heart failure and stage 1 through stage 4 chronic kidney disease, or unspecified chronic kidney disease; I50.9 Heart failure, unspecified; N18.9 Chronic kidney disease, unspecified; E78.00 Pure hypercholesterolemia, unspecified; E03.9 Hypothyroidism, unspecified; Z90.710 Acquired absence of both cervix and uterus; Z87.891 Personal history of nicotine dependence; Z88.8 Allergy status to other drugs, medicaments and biological substances; Z79.899 Other long term (current) drug therapy
CPT/HCPCS: 36415; 71020; 71275; 80053; 81001; 82550; 82553; 83880; 84484; 85025; 85379; 85610; 86140; 87086; 87088; 87186; 93005; 96365; 96366; 96375; 99284; J0696; J7030; J7050; Q9967

== ENCOUNTER 2017-11-18 09:16 | Emergency (ER) | payer MEDICARE, BC ==
[2017-11-18 10:05] VITALS: BP 147/61
[2017-11-18 10:37] LABS: CHLORIDE,CL 108 mmol/L (98-107); SODIUM,NA 141 mmol/L (136-145)
--- NOTE | 2017-11-19 20:38 | EDM.PDOC ---
ED HPI GENERAL MEDICAL PROBLEM - General Chief Complaint: Syncope Stated Complaint: UNRESPONSIVE EPISODE Time Seen by Provider: 11/18/17 09:35 Source of Information: Reports: Patient History Limitations: Reports: No Limitations - History of Present Illness INITIAL COMMENTS - FREE TEXT/NARRATIVE: Pt. is a resident at [place]. Pt. states that she had a syncopal episode with getting out of the shower. She states that she has some chronic back pain that was exacerbated by getting out of the shower, and this caused her to pass out. She did not strike her head. She did not have any chest pain or shortness of breath prior to passing out. Onset: Today Middle Back Pain Score (Numeric/FACES): 5 - Related Data Allergies Allergy/AdvReac Type Severity Reaction Status Date / Time Antihistamines - Alkylamine Allergy Cannot Verified 11/18/17 09:58 Remember atorvastatin calcium Allergy Other Verified 11/18/17 09:58 [From Lipitor] diphenhydramine Allergy Cannot Verified 11/18/17 09:58 [From Benadryl] Remember Home Meds: Home Meds Levothyroxine [Synthroid] 88 mcg PO ACBREAKFAST 08/14/14 [History] Metoprolol Succinate 50 mg PO DAILY 08/14/14 [History] amLODIPine [Norvasc] 5 mg PO DAILY tablet 02/03/15 [Rx] Loperamide [Imodium] 2 mg PO BID PRN 02/14/15 [History] Potassium Chloride [Klor-Con M20] 20 meq PO DAILY 02/14/15 [History] Furosemide 20 mg PO DAILY 04/30/16 [History] Acetaminophen/HYDROcodone [[place] 325-5 MG] 1 tab PO Q4H PRN 11/18/17 [History] Cranberry Ext/C/L. Sporogenes [Azo Cranberry] 1 tab PO DAILY 11/18/17 [History] Docusate Sodium 100 mg PO DAILY 11/18/17 [History] Omeprazole 20 mg PO BEDTIME 11/18/17 [History] Ondansetron HCl [Ondansetron] 4 mg PO Q8H PRN 11/18/17 [History] Sennosides/Docusate Sodium [Senna Plus Tablet] 1 - 2 tab PO ASDIRECTED PRN 11/18 [History] Past Medical History HEENT History: Reports: Hard of Hearing, Impaired Vision Cardiovascular History: Reports: Heart Failure, High Cholesterol, Hypertension Respiratory History: Reports: None Gastrointestinal History: Reports: Other (See Below) Other Gastrointestinal History: lymphocytic colitis Genitourinary History: Reports: Chronic Renal Insuffiency Other OB/BYN History: x2, hysterectomy Musculoskeletal History: Reports: Other (See Below) Other Musculoskeletal History: R leg with pins and plates long time ago. 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 Psychiatric History: Reports: None Endocrine/Metabolic History: Reports: Hypothyroidism Hematologic History: Reports: None Immunologic History: Reports: None Oncologic (Cancer) History: Reports: Other (See Below) Other Oncologic History: forehead, face skin cancer Other Dermatologic History: erick intertrigo beneath breasts - Infectious Disease History Infectious Disease History: Reports: None - Past Surgical History Musculoskeletal Surgical History: Reports: Other (See Below) Social & Family History - Family History Family Medical History: Noncontributory - Tobacco Use Smoking Status *Q: Never Smoker - Caffeine Use Caffeine Use: Reports: Coffee Caffeine Use Comment: 2 cups in the morining - Recreational Drug Use Recreational Drug Use: No - Living Situation & Occupation Living situation: Reports: ED ROS GENERAL - Review of Systems Review Of Systems: See Below Constitutional: Reports: No Symptoms HEENT: Reports: No Symptoms Respiratory: Reports: No Symptoms Cardiovascular: Reports: No Symptoms Endocrine: Reports: No Symptoms GI/Abdominal: Reports: No Symptoms : Reports: No Symptoms Musculoskeletal: Reports: Back Pain Skin: Reports: No Symptoms Neurological: Reports: Syncope Psychiatric: Reports: No Symptoms Hematologic/Lymphatic: Reports: No Symptoms Immunologic: Reports: No Symptoms ED EXAM, GENERAL - Physical Exam Exam: See Below Exam Limited By: No Limitations General Appearance: Alert, WD/WN, No Apparent Distress Eye Exam: Bilateral Eye: EOMI, Normal Fundi, Normal Inspection, PERRL Ears: Normal External Exam, Normal Canal, Hearing Grossly Normal, Normal TMs Ear Exam: Bilateral Ear: Auricle Normal, Canal Normal, TM normal Nose: Normal Inspection, Normal Mucosa, No Blood Throat/Mouth: Normal Inspection, Normal Lips, Normal Teeth, Normal Gums, Normal Oropharynx, Normal Voice, No Airway Compromise Head: Atraumatic, Normocephalic Neck: Normal Inspection, Supple, Non-Tender, Full Range of Motion Respiratory/Chest: No Respiratory Distress, Lungs Clear, Normal Breath Sounds, No Accessory Muscle Use, Chest Non-Tender Cardiovascular: Normal Peripheral Pulses, Regular Rate, Rhythm, No Edema, No Gallop, No JVD, No Murmur, No Rub Peripheral Pulses: 4+: Radial (L), Radial (R) GI/Abdominal: Normal Bowel Sounds, Soft, Non-Tender, No Organomegaly, No Distention, No Abnormal Bruit, No Mass Back Exam: Normal Inspection, Paraspinal Tenderness, Vertebral Tenderness Extremities: Normal Inspection, Normal Range of Motion, Non-Tender, Normal Capillary Refill, No Pedal Edema Neurological: Alert, Oriented, CN II-XII Intact, Normal Cognition, Normal Gait, Normal Reflexes, No Motor/Sensory Deficits Psychiatric: Normal Affect, Normal Mood Skin Exam: Warm, Dry, Intact, Normal Color, No Rash Lymphatic: No Adenopathy Course - Vital Signs Last Recorded V/S: Last Vital Signs Temp 36.3 C 11/18/17 09:20 Pulse 71 11/18/17 09:20 Resp 20 11/18/17 09:20 BP 147/61 H 11/18/17 09:20 Pulse Ox 96 11/18/17 09:20 - Orders/Labs/Meds Labs: Laboratory Tests 11/18/17 11/18/17 11/18/17 Range/Units 10:07 10:07 10:07 WBC 7.0 (4.0-10.0) x10^3/uL RBC 3.29 L (4.00-5.50) x10^6/uL Hgb 9.9 L D (12.0-16.0) g/dL Hct 30.7 L (33.0-47.0) % MCV 93.3 H (78.0-93.0) fL MCH 30.1 (26.0-32.0) pg MCHC 32.2 (32.0-36.0) g/dL RDW Coeff of Tyrell 14.1 (10.0-15.0) % Plt Count 248 (130-400) x10^3/uL Neut % (Auto) 78.9 (50.0-80.0) % Lymph % (Auto) 12.3 L (25.0-50.0) % [place] % (Auto) 6.1 (2.0-11.0) % Eos % (Auto) 2.3 (0.0-4.0) % Baso % (Auto) 0.4 (0.2-1.2) % PT 9.3 L (9.6-11.4) SEC INR 0.9 L (2.0-3.5) Sodium 141 (136-145) mmol/L Potassium 3.9 (3.5-5.1) mmol/L Chloride 108 H (98-107) mmol/L Carbon Dioxide 24 (21-32) mmol/L Anion Gap 12.9 (10-20) mmol/L BUN 29 H (7-18) mg/dL Creatinine 1.4 H (0.55-1.02) mg/dL Est Cr Clr Drug Dosing TNP Estimated GFR (MDRD) 35 Glucose 212 H (74-106) mg/dL Calcium 8.5 (8.5-10.1) mg/dL Corrected Calcium 9.38 (8.5-10.1) mg/dL Total Bilirubin 0.2 (0.2-1.0) mg/dL AST 15 (15-37) U/L ALT 16 (14-59) U/L Alkaline Phosphatase 76 (46-116) U/L Troponin I < 0.017 (<=0.056) ng/mL Total Protein 6.3 L (6.4-8.2) g/dL Albumin 2.9 L (3.4-5.0) g/dL Globulin 3.4 Albumin/Globulin Ratio 0.85 Urine Color (YELLOW) Urine Appearance (CLEAR) Urine pH (5.0-8.0) Ur Specific [place] Urine Protein (NEGATIVE) mg/dL Urine Glucose (UA) (NEGATIVE) mg/dL Urine Ketones (NEGATIVE) mg/dL Urine Occult Blood (NEGATIVE) Urine Nitrite (NEGATIVE) Urine Bilirubin (NEGATIVE) Urine Urobilinogen (0.2) EU/dL Ur Leukocyte Esterase (NEGATIVE) Urine RBC (NOT SEEN) /HPF Urine WBC (NOT SEEN) /HPF Ur Squamous Epith Cells (NEGATIVE) /HPF Amorphous Sediment Urine Bacteria (NEGATIVE) /HPF Urine Mucus (NEGATIVE) /LPF 11/18/17 Range/Units 11:43 WBC (4.0-10.0) x10^3/uL RBC (4.00-5.50) x10^6/uL Hgb (12.0-16.0) g/dL Hct (33.0-47.0) % MCV (78.0-93.0) fL MCH (26.0-32.0) pg MCHC (32.0-36.0) g/dL RDW Coeff of Tyrell (10.0-15.0) % Plt Count (130-400) x10^3/uL Neut % (Auto) (50.0-80.0) % Lymph % (Auto) (25.0-50.0) % [place] % (Auto) (2.0-11.0) % Eos % (Auto) (0.0-4.0) % Baso % (Auto) (0.2-1.2) % PT (9.6-11.4) SEC INR (2.0-3.5) Sodium (136-145) mmol/L Potassium (3.5-5.1) mmol/L Chloride (98-107) mmol/L Carbon Dioxide (21-32) mmol/L Anion Gap (10-20) mmol/L BUN (7-18) mg/dL Creatinine (0.55-1.02) mg/dL Est Cr Clr Drug Dosing Estimated GFR (MDRD) Glucose (74-106) mg/dL Calcium (8.5-10.1) mg/dL Corrected Calcium (8.5-10.1) mg/dL Total Bilirubin (0.2-1.0) mg/dL AST (15-37) U/L ALT (14-59) U/L Alkaline Phosphatase (46-116) U/L Troponin I (<=0.056) ng/mL Total Protein (6.4-8.2) g/dL Albumin (3.4-5.0) g/dL Globulin Albumin/Globulin Ratio Urine Color Yellow (YELLOW) Urine Appearance Cloudy H (CLEAR) Urine pH 5.5 (5.0-8.0) Ur Specific [place] 1.020 Urine Protein 30 H (NEGATIVE) mg/dL Urine Glucose (UA) Negative (NEGATIVE) mg/dL Urine Ketones Negative (NEGATIVE) mg/dL Urine Occult Blood Moderate H (NEGATIVE) Urine Nitrite Negative (NEGATIVE) Urine Bilirubin Small H (NEGATIVE) Urine Urobilinogen 0.2 (0.2) EU/dL Ur Leukocyte Esterase Small H (NEGATIVE) Urine RBC 10-20 H (NOT SEEN) /HPF Urine WBC 10-20 H (NOT SEEN) /HPF Ur Squamous Epith Cells Few H (NEGATIVE) /HPF Amorphous Sediment Few Urine Bacteria Moderate H (NEGATIVE) /HPF Urine Mucus Few H (NEGATIVE) /LPF Departure - Departure Time of Disposition: 13:05 Disposition: Home, Self-Care 01 Clinical Impression: Syncope, UTI (urinary tract infection) - Discharge Information Instructions: Syncope Referrals: Meme Camargo PA-C [Primary Care Provider] - Forms: ED Department Discharge Additional Instructions: Home to rest. Return to ER if symptoms worsen. Follow-up in clinic in 7-10 days. Marcobid 100mg twice daily for 5 days.
== END 2017-11-18 13:05 | disposition home or self-care (01) ==
LOC: VM.ED 09:16
DX: R55 Syncope and collapse (principal); N39.0 Urinary tract infection, site not specified; I11.0 Hypertensive heart disease with heart failure; I50.9 Heart failure, unspecified; E78.00 Pure hypercholesterolemia, unspecified; E03.9 Hypothyroidism, unspecified; Z79.899 Other long term (current) drug therapy; Z88.8 Allergy status to other drugs, medicaments and biological substances
CPT/HCPCS: 36415; 71045; 80053; 81001; 84484; 85025; 85610; 93005; 99284-GF; 99285

== ENCOUNTER 2017-11-23 20:10 | Inpatient (IN) | payer MEDICARE, BC ==
[2017-11-23] MEDS ORDERED: Sodium Chloride 0.9% 10 ML Syringe FLUSH PRN (20:26)
[2017-11-23] MEDS ORDERED: Albuterol/Ipratropium 3.0-0.5 MG/3 ML Neb Soln NEB ONE (20:29)
[2017-11-23 21:23] LABS: CHLORIDE,CL 106 mmol/L (98-107); SODIUM,NA 139 mmol/L (136-145)
[2017-11-23] MEDS ORDERED: methylPREDNISolone Sodium Succinate 125 MG/2 ML SDV IV ONE (21:37)
--- NOTE | 2017-11-23 21:54 | EDM.PDOC ---
ED HPI GENERAL MEDICAL PROBLEM - General Chief Complaint: Respiratory Problem Stated Complaint: Shortness of breath, wheezing Time Seen by Provider: 11/23/17 20:10 Source of Information: Reports: Patient History Limitations: Reports: No Limitations - History of Present Illness INITIAL COMMENTS - FREE TEXT/NARRATIVE: Pt. presents to ER with complaints of acute dyspnea, starting shortly before arrival to the ER. She states that she has not been experiencing any fever or chills. Cough is non-productive. She denies any chest discomfort. Pt. has a history of diastolic heart failure. She denies any peripheral edema. Pt. has never been diagnosed with COPD and is not currently on any medications for it, but she was a smoker since teens or 20s and stopped approx 2 years ago. Her previous chest x-rays revealed evidence of hyperinflation consistent with COPD. She has not had a cough. She spent some time outside today; the air quality was poor today, which may have caused some worsening of her symptoms. Her hemoglobin was 12.2 in the clinic in September. She was recently treated for a UTI and finished her antibiotic. Onset: Today Onset Date: 11/23/17 Associated Symptoms: Reports: Shortness of Breath - Related Data Allergies Allergy/AdvReac Type Severity Reaction Status Date / Time Antihistamines - Alkylamine Allergy Cannot Verified 11/23/17 20:39 Remember atorvastatin calcium Allergy Other Verified 11/23/17 20:39 [From Lipitor] diphenhydramine Allergy Cannot Verified 11/23/17 20:39 [From Benadryl] Remember Home Meds: Home Meds Levothyroxine [Synthroid] 88 mcg PO ACBREAKFAST 08/14/14 [History] Metoprolol Succinate 50 mg PO DAILY 08/14/14 [History] amLODIPine [Norvasc] 5 mg PO DAILY tablet 02/03/15 [Rx] Loperamide [Imodium] 2 mg PO BID PRN 02/14/15 [History] Potassium Chloride [Klor-Con M20] 20 meq PO DAILY 02/14/15 [History] Furosemide 20 mg PO DAILY 04/30/16 [History] Acetaminophen/HYDROcodone [Irwin 325-5 MG] 1 tab PO Q4H PRN 11/18/17 [History] Cranberry Ext/C/L. Sporogenes [Azo Cranberry] 1 tab PO DAILY 11/18/17 [History] Docusate Sodium 100 mg PO DAILY 11/18/17 [History] Omeprazole 20 mg PO BEDTIME 11/18/17 [History] Ondansetron HCl [Ondansetron] 4 mg PO Q8H PRN 11/18/17 [History] Sennosides/Docusate Sodium [Senna Plus Tablet] 1 - 2 tab PO ASDIRECTED PRN 11/18 [History] Past Medical History HEENT History: Reports: Hard of Hearing, Impaired Vision Cardiovascular History: Reports: Heart Failure, High Cholesterol, Hypertension Respiratory History: Reports: None Gastrointestinal History: Reports: Other (See Below) Other Gastrointestinal History: lymphocytic colitis Genitourinary History: Reports: Chronic Renal Insuffiency Other OB/BYN History: x2, hysterectomy Musculoskeletal History: Reports: Other (See Below) Other Musculoskeletal History: R leg with pins and plates long time ago. 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 Psychiatric History: Reports: None Endocrine/Metabolic History: Reports: Hypothyroidism Hematologic History: Reports: None Immunologic History: Reports: None Oncologic (Cancer) History: Reports: Other (See Below) Other Oncologic History: forehead, face skin cancer Other Dermatologic History: erick intertrigo beneath breasts - Infectious Disease History Infectious Disease History: Reports: None - Past Surgical History Musculoskeletal Surgical History: Reports: Other (See Below) Social & Family History - Family History Family Medical History: Noncontributory - Caffeine Use Caffeine Use: Reports: Coffee Caffeine Use Comment: 2 cups in the morining - Living Situation & Occupation Living situation: Reports: ED ROS GENERAL - Review of Systems Review Of Systems: See Below Constitutional: Reports: No Symptoms HEENT: Reports: No Symptoms Respiratory: Reports: Shortness of Breath, Wheezing Cardiovascular: Reports: No Symptoms Endocrine: Reports: No Symptoms GI/Abdominal: Reports: No Symptoms : Reports: No Symptoms Musculoskeletal: Reports: No Symptoms Skin: Reports: No Symptoms Neurological: Reports: No Symptoms Psychiatric: Reports: No Symptoms Hematologic/Lymphatic: Reports: No Symptoms Immunologic: Reports: No Symptoms ED EXAM, GENERAL - Physical Exam Exam: See Below Exam Limited By: No Limitations General Appearance: Alert, WD/WN, No Apparent Distress Eye Exam: Bilateral Eye: EOMI, Normal Fundi, Normal Inspection, PERRL Nose: Normal Inspection, Normal Mucosa, No Blood Throat/Mouth: Normal Inspection, Normal Lips, Normal Teeth, Normal Gums, Normal Oropharynx, Normal Voice, No Airway Compromise Head: Atraumatic, Normocephalic Neck: Normal Inspection, Supple, Non-Tender, Full Range of Motion Respiratory/Chest: Respiratory Distress, Decreased Breath Sounds, Wheezing. No : Crackles, Rales, Stridor, Pleural Rub, Accessory Muscle Use, Retractions, Prolonged Expiration Cardiovascular: Normal Peripheral Pulses, Regular Rate, Rhythm, No Edema, No Gallop, No JVD, No Murmur, No Rub Peripheral Pulses: 3+: Radial (L), Radial (R) GI/Abdominal: Normal Bowel Sounds, Soft, Non-Tender, No Organomegaly, No Distention, No Abnormal Bruit, No Mass (Female) Exam: Deferred Rectal (Female) Exam: Deferred Back Exam: Normal Inspection, Full Range of Motion, NT Extremities: Normal Inspection, Normal Range of Motion, Non-Tender, Normal Capillary Refill, No Pedal Edema Neurological: Alert, Oriented, CN II-XII Intact, Normal Cognition, Normal Gait, Normal Reflexes, No Motor/Sensory Deficits Psychiatric: Normal Affect, Normal Mood Skin Exam: Warm, Dry, Intact, Normal Color, No Rash Lymphatic: No Adenopathy EKG INTERPRETATION Rhythm: NSR [place]: Normal P-Wave: Present QRS: Normal ST-T: Normal QT: Normal Course - Vital Signs Last Recorded V/S: Last Vital Signs Temp 37.4 C 11/23/17 20:10 Pulse 75 11/23/17 20:45 Resp 15 11/23/17 21:20 BP 152/70 H 11/23/17 20:32 Pulse Ox 94 L 11/23/17 21:20 - Orders/Labs/Meds Orders: Active Orders 24 hr Category Date Time Status EKG Documentation Completion [RC] STAT Care 11/23/17 20:26 Active Oxygen Therapy [RC] PRN Care 11/23/17 20:27 Active RT Aerosol Therapy [RC] ASDIRECTED Care 11/23/17 20:29 Active Chest 1V Frontal [CR] Stat Exams 11/23/17 20:27 Taken CULTURE BLOOD [BC] Stat Lab 11/23/17 20:35 Received CULTURE BLOOD [BC] Stat Lab 11/23/17 20:42 Received D Dimer [D-DIMER QUANTITATIVE] [COAG] Stat Lab 11/23/17 21:46 Ordered UA W/MICROSCOPIC [URIN] Stat Lab 11/23/17 21:08 Ordered Sodium Chloride 0.9% [Saline Flush] Med 11/23/17 20:26 Active 10 ml FLUSH ASDIRECTED PRN Blood Culture x2 Reflex Set [OM.PC] Stat Oth 11/23/17 20:26 Ordered Peripheral IV Insertion Adult [OM.PC] Routine Oth 11/23/17 20:26 Ordered Medication Orders Sodium Chloride (Saline Flush) 10 ml FLUSH ASDIRECTED PRN PRN Reason: Keep Vein Open Labs: Laboratory Tests 11/23/17 11/23/17 11/23/17 Range/Units 20:35 20:35 20:35 WBC 8.5 (4.0-10.0) x10^3/uL RBC 3.22 L (4.00-5.50) x10^6/uL Hgb 9.8 L (12.0-16.0) g/dL Hct 30.4 L (33.0-47.0) % MCV 94.4 H (78.0-93.0) fL MCH 30.4 (26.0-32.0) pg MCHC 32.2 (32.0-36.0) g/dL RDW Coeff of [place] 14.1 (10.0-15.0) % Plt Count 272 (130-400) x10^3/uL Neut % (Auto) 69.9 (50.0-80.0) % Lymph % (Auto) 11.4 L (25.0-50.0) % [place] % (Auto) 10.1 (2.0-11.0) % Eos % (Auto) 8.5 H (0.0-4.0) % Baso % (Auto) 0.1 L (0.2-1.2) % PT 9.4 L (9.6-11.4) SEC INR 0.9 L (2.0-3.5) Sodium 139 (136-145) mmol/L Potassium 4.3 (3.5-5.1) mmol/L Chloride 106 (98-107) mmol/L Carbon Dioxide 23 (21-32) mmol/L Anion Gap 14.3 (10-20) mmol/L BUN 29 H (7-18) mg/dL Creatinine 1.4 H (0.55-1.02) mg/dL Est Cr Clr Drug Dosing 23.52 mL/min Estimated GFR (MDRD) 35 Glucose 103 (74-106) mg/dL Lactic Acid (0.4-2.0) mmol/L Calcium 8.6 (8.5-10.1) mg/dL Corrected Calcium 9.48 (8.5-10.1) mg/dL Total Bilirubin 0.2 (0.2-1.0) mg/dL AST 12 L (15-37) U/L ALT 15 (14-59) U/L Alkaline Phosphatase 82 (46-116) U/L Troponin I < 0.017 (<=0.056) ng/mL C-Reactive Protein 3.7 H (<=0.9) mg/dL NT-Pro-B Natriuret Pep 631 H (<=450) pg/mL Total Protein 6.8 (6.4-8.2) g/dL Albumin 2.9 L (3.4-5.0) g/dL Globulin 3.9 Albumin/Globulin Ratio 0.74 Urine Color (YELLOW) Urine Appearance (CLEAR) Urine pH (5.0-8.0) Ur Specific [place] Urine Protein (NEGATIVE) mg/dL Urine Glucose (UA) (NEGATIVE) mg/dL Urine Ketones (NEGATIVE) mg/dL Urine Occult Blood (NEGATIVE) Urine Nitrite (NEGATIVE) Urine Bilirubin (NEGATIVE) Urine Urobilinogen (0.2) EU/dL Ur Leukocyte Esterase (NEGATIVE) Urine RBC (NOT SEEN) /HPF Urine WBC (NOT SEEN) /HPF Ur Squamous Epith Cells (NEGATIVE) /HPF Amorphous Sediment Urine Bacteria (NEGATIVE) /HPF Urine Mucus (NEGATIVE) /LPF 11/23/17 11/23/17 Range/Units 20:35 21:08 WBC (4.0-10.0) x10^3/uL RBC (4.00-5.50) x10^6/uL Hgb (12.0-16.0) g/dL Hct (33.0-47.0) % MCV (78.0-93.0) fL MCH (26.0-32.0) pg MCHC (32.0-36.0) g/dL RDW Coeff of [place] (10.0-15.0) % Plt Count (130-400) x10^3/uL Neut % (Auto) (50.0-80.0) % Lymph % (Auto) (25.0-50.0) % [place] % (Auto) (2.0-11.0) % Eos % (Auto) (0.0-4.0) % Baso % (Auto) (0.2-1.2) % PT (9.6-11.4) SEC INR (2.0-3.5) Sodium (136-145) mmol/L Potassium (3.5-5.1) mmol/L Chloride (98-107) mmol/L Carbon Dioxide (21-32) mmol/L Anion Gap (10-20) mmol/L BUN (7-18) mg/dL Creatinine (0.55-1.02) mg/dL Est Cr Clr Drug Dosing mL/min Estimated GFR (MDRD) Glucose (74-106) mg/dL Lactic Acid 0.7 (0.4-2.0) mmol/L Calcium (8.5-10.1) mg/dL Corrected Calcium (8.5-10.1) mg/dL Total Bilirubin (0.2-1.0) mg/dL AST (15-37) U/L ALT (14-59) U/L Alkaline Phosphatase (46-116) U/L Troponin I (<=0.056) ng/mL C-Reactive Protein (<=0.9) mg/dL NT-Pro-B Natriuret Pep (<=450) pg/mL Total Protein (6.4-8.2) g/dL Albumin (3.4-5.0) g/dL Globulin Albumin/Globulin Ratio Urine Color Yellow (YELLOW) Urine Appearance Clear (CLEAR) Urine pH 5.5 (5.0-8.0) Ur Specific [place] 1.025 Urine Protein Trace H (NEGATIVE) mg/dL Urine Glucose (UA) Negative (NEGATIVE) mg/dL Urine Ketones Negative (NEGATIVE) mg/dL Urine Occult Blood Negative (NEGATIVE) Urine Nitrite Negative (NEGATIVE) Urine Bilirubin Small H (NEGATIVE) Urine Urobilinogen 0.2 (0.2) EU/dL Ur Leukocyte Esterase Negative (NEGATIVE) Urine RBC 0-5 (NOT SEEN) /HPF Urine WBC 0-5 (NOT SEEN) /HPF Ur Squamous Epith Cells Rare (NEGATIVE) /HPF Amorphous Sediment Few Urine Bacteria Rare (NEGATIVE) /HPF Urine Mucus Not seen (NEGATIVE) /LPF Meds: Medications Generic Name Dose Route Start Last Admin Trade Name Freq PRN Reason Stop Dose Admin Sodium Chloride 10 ml 11/23/17 20:26 Saline Flush FLUSH ASDIRECTED PRN Keep Vein Open Discontinued Medications Generic Name Dose Route Start Last Admin Trade Name Freq PRN Reason Stop Dose Admin Albuterol/Ipratropium 3 ml 11/23/17 20:29 11/23/17 20:32 Duoneb 3.0-0.5 Mg/3 Ml NEB 11/23/17 20:30 3 ml ONETIME ONE Administration Methylprednisolone Sodium Succinate 125 mg 11/23/17 21:37 11/23/17 21:55 Solu-Medrol IV 11/23/17 21:38 125 mg ONETIME ONE Administration - Radiology Interpretation Free Text/Narrative:: CXR doesn't reveal any acute changes. There is evidence of hyperinflation but no infiltrate or failure pattern. Departure - Departure Time of Disposition: 22:13 Disposition: Admitted As Inpatient 64 Clinical Impression: COPD (chronic obstructive pulmonary disease) - Discharge Information - My Orders Last 24 Hours: My Active Orders 11/23/17 20:26 EKG Documentation Completion [RC] STAT Sodium Chloride 0.9% [Saline Flush] 10 ml FLUSH ASDIRECTED PRN Blood Culture x2 Reflex Set [OM.PC] Stat Peripheral IV Insertion Adult [OM.PC] Routine 11/23/17 20:27 Oxygen Therapy [RC] PRN Chest 1V Frontal [CR] Stat 11/23/17 20:29 RT Aerosol Therapy [RC] ASDIRECTED 11/23/17 20:35 CULTURE BLOOD [BC] Stat 11/23/17 20:42 CULTURE BLOOD [BC] Stat 11/23/17 21:08 UA W/MICROSCOPIC [URIN] Stat 11/23/17 21:46 D Dimer [D-DIMER QUANTITATIVE] [COAG] Stat - Assessment/Plan Last 24 Hours: My Active Orders 11/23/17 20:26 EKG Documentation Completion [RC] STAT Sodium Chloride 0.9% [Saline Flush] 10 ml FLUSH ASDIRECTED PRN Blood Culture x2 Reflex Set [OM.PC] Stat Peripheral IV Insertion Adult [OM.PC] Routine 11/23/17 20:27 Oxygen Therapy [RC] PRN Chest 1V Frontal [CR] Stat 11/23/17 20:29 RT Aerosol Therapy [RC] ASDIRECTED 11/23/17 20:35 CULTURE BLOOD [BC] Stat 11/23/17 20:42 CULTURE BLOOD [BC] Stat 11/23/17 21:08 UA W/MICROSCOPIC [URIN] Stat 11/23/17 21:46 D Dimer [D-DIMER QUANTITATIVE] [COAG] Stat
[2017-11-23] MEDS ORDERED: Acetaminophen/HYDROcodone 325-5 MG Tab PO PRN (23:08)
[2017-11-23] MEDS ORDERED: Furosemide 40 MG Tab PO ONE (23:25)
[2017-11-23] MEDS ORDERED: Enoxaparin 60 MG/0.6 ML Syringe SUBCUT ONE (23:45)
--- NOTE | 2017-11-24 00:04 | PCM.HP ---
H&P History of Present Illness - General Date of Service: 11/23/17 Admit Problem/Dx: Admission Diagnosis/Problem Admission Diagnosis/Problem Dyspnea - History of Present Illness Initial Comments - Free Text/Narative: HPI: Her son (possibly a grandson) was with her this evening when she went to bed about 7:30 and she was feeling OK. She called shortly after that because she was very short of breath after getting up to go to the bathroom. She just felt weak and unsteady and disoriented. She continued to be dyspneic until arriving in the ER, improved a little bit with a nebulizer Rx. No She is on Lasix 20 mg daily for mild CHF, no known coronary disease. She has been a smoker and quit only 3-4 years ago, but for many years she only smoked about 1 pack per month and never was a heavy smoker. Has no DX of COPD. No Hx of any blood clots, denies any pain or tenderness in her lower legs. Her d- dimer was elevated in the ER however. Troponin was negative. No chest pain. After arriving on the floor says her dyspnea is considerably better. Her oximetry is 93% on room air. Also in the ER her Hgb was down 2-3 g from just a few weeks ago, and her iron saturation was 9.5%. She denies any blood in the stools. She was seen with a UTI in the ER last week and just finished her antibiotic for that yesterday Medical History: -Skin cancer -Osteoporosis -Memory loss -Lymphocytic colitis, stopped Zocor and aspirin for this in 07/07 insomnia, Rx with nortriptyline -Hypothyroidism -Hypertension, Rx Norvasc, metoprolol -Hyperlipidemia, Rx stopped because of her colitis -Falls -CKD, stage 3 -CHF since 14 -Arthritis -Quit smoking only a couple years ago Surgical History -Laparoscopic cholecystectomy 11/06 -Hysterectomy -Fracture surgery, tibia -Cataract extraction -Colonoscopy 07/07 -Breast BX Family History: -Mother had diabetes and heart disease -Father had heart disease and COPD -Sister had hyperlipidemia Social History: , in [facility] assisted [facility] since 16. Worked for many years at the [employer] in [place]. Son thinks she had designated no CPR on her Advance Directive but at [facility] she has been listed as code level I, so she will continue that for tonight. Systems Review: Constitutional: Generally feeling OK until this evening Eyes: Says good vision since cataract surgery, can read but needs glasses ENT: Very poor hearing, could not hear me at all without putting her hearing aids back in; full dentures above, partial below Cardiac: Denies any chest pain or orthopnea, no known Hx of coronary disease Pulmonary: Very light smoker for many years, no known lung disease GI: Denies any stool problems or blood in the stool, see HPI regarding drop in Hb and low iron; Hx of colitis : Mild incontinence, wears incontinence pads; recent UTI, see HPI Musculoskeletal: Says she really has no trouble with arthritis Endocrine: On thyroid replacement Heme: See HPI Derm: Hx of skin cancer, no details Neurologic: She does have poor memory, could not tolerate Aricept; she and her son admit that her long-term memory is excellent but her short-term memory is very poor Psych: Never any depression or other problem Physical Exam: Generali: Alert, answers questions appropriately but her hearing is poor. Vital signs OK, oximetry 93% Eyes: Pupils equal Mouth and throat: Dentures Ears: Hearing aids Neck: No jugular venous distention Cardiac: Heart sounds regular, no tachycardia, does have systolic flow type murmur over the R sternal border Lungs: Does have coarse inspiratory rales and some coarse expiratory wheezes but no dyspnea Breast: Not examined Abdomen: Soft, nontender, no organomegaly or masses Extremities: Unable to feel pulses, 1+ ankle edema; no tenderness to palpation in her calves Skin: Faint rash over the top of her feet Neurologic: Facial muscles symmetric, moves her arms and legs normally Psych: Affect seems normal, jovial. Impression: -Sudden onset of dyspnea at night -Elevated d-dimer -Risk of PE probably low, no sign of DVT in legs, dyspnea has improved, oximetry OK, but should get Lovenox tonight and get a CT of lung -Some CHF Plan: -Lovenox, should be 68 mg BID, I rounded down to 60 mg BID -Lung scan in a.m. -One extra Lasix by mouth 40 mg tonight - Related Data Allergies/Adverse Reactions: Allergies Allergy/AdvReac Type Severity Reaction Status Date / Time Antihistamines - Alkylamine Allergy Cannot Verified 11/23/17 20:39 Remember atorvastatin calcium Allergy Other Verified 11/23/17 20:39 [From Lipitor] diphenhydramine Allergy Cannot Verified 11/23/17 20:39 [From Benadryl] Remember Home Medications: Home Meds Levothyroxine [Synthroid] 88 mcg PO ACBREAKFAST 08/14/14 [History] Metoprolol Succinate 50 mg PO DAILY 08/14/14 [History] amLODIPine [Norvasc] 5 mg PO DAILY tablet 02/03/15 [Rx] Loperamide [Imodium] 2 mg PO BID PRN 02/14/15 [History] Potassium Chloride [Klor-Con M20] 20 meq PO DAILY 02/14/15 [History] Furosemide 20 mg PO DAILY 04/30/16 [History] Acetaminophen/HYDROcodone [[place] 325-5 MG] 1 tab PO Q4H PRN 11/18/17 [History] Cranberry Ext/C/L. Sporogenes [Azo Cranberry] 1 tab PO DAILY 11/18/17 [History] Docusate Sodium 100 mg PO DAILY 11/18/17 [History] Omeprazole 20 mg PO BEDTIME 11/18/17 [History] Ondansetron HCl [Ondansetron] 4 mg PO Q8H PRN 11/18/17 [History] Sennosides/Docusate Sodium [Senna Plus Tablet] 1 - 2 tab PO ASDIRECTED PRN 11/18 [History] Past Medical History HEENT History: Reports: Hard of Hearing, Impaired Vision Cardiovascular History: Reports: Heart Failure, High Cholesterol, Hypertension Respiratory History: Reports: None Gastrointestinal History: Reports: Other (See Below) Other Gastrointestinal History: lymphocytic colitis Genitourinary History: Reports: Chronic Renal Insuffiency Other OB/BYN History: x2, hysterectomy Musculoskeletal History: Reports: Other (See Below) Other Musculoskeletal History: R leg with pins and plates long time ago. 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 Psychiatric History: Reports: None Endocrine/Metabolic History: Reports: Hypothyroidism Hematologic History: Reports: None Immunologic History: Reports: None Oncologic (Cancer) History: Reports: Other (See Below) Other Oncologic History: forehead, face skin cancer Other Dermatologic History: erick intertrigo beneath breasts - Infectious Disease History Infectious Disease History: Reports: None - Past Surgical History Musculoskeletal Surgical History: Reports: Other (See Below) Social & Family History - Family History Family Medical History: Noncontributory - Tobacco Use Smoking Status *Q: Former Smoker Used Tobacco, but Quit: Yes Month/Year Tobacco Last Used: 2 years ago - Caffeine Use Caffeine Use: Reports: Coffee Caffeine Use Comment: 2 cups in the morining - Living Situation & Occupation Living situation: Reports: H&P Review of Systems - Review of Systems: Review Of Systems: See Below Exam - Exam Exam: See Below - Vital Signs Vital Signs: Last Vital Signs Temp 36.9 C 11/23/17 22:20 Pulse 75 11/23/17 22:20 Resp 16 11/23/17 22:20 BP 140/60 11/23/17 22:20 Pulse Ox 93 L 11/23/17 22:20 Weight: 68.039 kg - Patient Data Lab Results Last 24 hrs: Laboratory Results - last 24 hr 11/23/17 11/23/17 11/23/17 Range/Units 20:35 20:35 20:35 WBC 8.5 (4.0-10.0) x10^3/uL RBC 3.22 L (4.00-5.50) x10^6/uL Hgb 9.8 L (12.0-16.0) g/dL Hct 30.4 L (33.0-47.0) % MCV 94.4 H (78.0-93.0) fL MCH 30.4 (26.0-32.0) pg MCHC 32.2 (32.0-36.0) g/dL RDW Coeff of [place]rell 14.1 (10.0-15.0) % Plt Count 272 (130-400) x10^3/uL Neut % (Auto) 69.9 (50.0-80.0) % Lymph % (Auto) 11.4 L (25.0-50.0) % Chambers % (Auto) 10.1 (2.0-11.0) % Eos % (Auto) 8.5 H (0.0-4.0) % Baso % (Auto) 0.1 L (0.2-1.2) % PT 9.4 L (9.6-11.4) SEC INR 0.9 L (2.0-3.5) D-Dimer, Quantitative (<=0.58) mg/LFEU Sodium 139 (136-145) mmol/L Potassium 4.3 (3.5-5.1) mmol/L Chloride 106 (98-107) mmol/L Carbon Dioxide 23 (21-32) mmol/L Anion Gap 14.3 (10-20) mmol/L BUN 29 H (7-18) mg/dL Creatinine 1.4 H (0.55-1.02) mg/dL Est Cr Clr Drug Dosing 23.52 mL/min Estimated GFR (MDRD) 35 Glucose 103 (74-106) mg/dL Lactic Acid (0.4-2.0) mmol/L Calcium 8.6 (8.5-10.1) mg/dL Corrected Calcium 9.48 (8.5-10.1) mg/dL Iron (50-170) ug/dL TIBC (250-450) ug/dL % Saturation (20.0-50.0) % Ferritin (8-252) ng/mL Total Bilirubin 0.2 (0.2-1.0) mg/dL AST 12 L (15-37) U/L ALT 15 (14-59) U/L Alkaline Phosphatase 82 (46-116) U/L Troponin I < 0.017 (<=0.056) ng/mL C-Reactive Protein 3.7 H (<=0.9) mg/dL NT-Pro-B Natriuret Pep 631 H (<=450) pg/mL Total Protein 6.8 (6.4-8.2) g/dL Albumin 2.9 L (3.4-5.0) g/dL Globulin 3.9 Albumin/Globulin Ratio 0.74 Urine Color (YELLOW) Urine Appearance (CLEAR) Urine pH (5.0-8.0) Ur Specific [place] Urine Protein (NEGATIVE) mg/dL Urine Glucose (UA) (NEGATIVE) mg/dL Urine Ketones (NEGATIVE) mg/dL Urine Occult Blood (NEGATIVE) Urine Nitrite (NEGATIVE) Urine Bilirubin (NEGATIVE) Urine Urobilinogen (0.2) EU/dL Ur Leukocyte Esterase (NEGATIVE) Urine RBC (NOT SEEN) /HPF Urine WBC (NOT SEEN) /HPF Ur Squamous Epith Cells (NEGATIVE) /HPF Amorphous Sediment Urine Bacteria (NEGATIVE) /HPF Urine Mucus (NEGATIVE) /LPF 11/23/17 11/23/17 11/23/17 Range/Units 20:35 20:35 20:35 WBC (4.0-10.0) x10^3/uL RBC (4.00-5.50) x10^6/uL Hgb (12.0-16.0) g/dL Hct (33.0-47.0) % MCV (78.0-93.0) fL MCH (26.0-32.0) pg MCHC (32.0-36.0) g/dL RDW Coeff of Tyrell (10.0-15.0) % Plt Count (130-400) x10^3/uL Neut % (Auto) (50.0-80.0) % Lymph % (Auto) (25.0-50.0) % Chambers % (Auto) (2.0-11.0) % Eos % (Auto) (0.0-4.0) % Baso % (Auto) (0.2-1.2) % PT (9.6-11.4) SEC INR (2.0-3.5) D-Dimer, Quantitative 1.65 H (<=0.58) mg/LFEU Sodium (136-145) mmol/L Potassium (3.5-5.1) mmol/L Chloride (98-107) mmol/L Carbon Dioxide (21-32) mmol/L Anion Gap (10-20) mmol/L BUN (7-18) mg/dL Creatinine (0.55-1.02) mg/dL Est Cr Clr Drug Dosing mL/min Estimated GFR (MDRD) Glucose (74-106) mg/dL Lactic Acid 0.7 (0.4-2.0) mmol/L Calcium (8.5-10.1) mg/dL Corrected Calcium (8.5-10.1) mg/dL Iron 30 L (50-170) ug/dL TIBC 318 (250-450) ug/dL % Saturation 9.4 L (20.0-50.0) % Ferritin 34 (8-252) ng/mL Total Bilirubin (0.2-1.0) mg/dL AST (15-37) U/L ALT (14-59) U/L Alkaline Phosphatase (46-116) U/L Troponin I (<=0.056) ng/mL C-Reactive Protein (<=0.9) mg/dL NT-Pro-B Natriuret Pep (<=450) pg/mL Total Protein (6.4-8.2) g/dL Albumin (3.4-5.0) g/dL Globulin Albumin/Globulin Ratio Urine Color (YELLOW) Urine Appearance (CLEAR) Urine pH (5.0-8.0) Ur Specific [place] Urine Protein (NEGATIVE) mg/dL Urine Glucose (UA) (NEGATIVE) mg/dL Urine Ketones (NEGATIVE) mg/dL Urine Occult Blood (NEGATIVE) Urine Nitrite (NEGATIVE) Urine Bilirubin (NEGATIVE) Urine Urobilinogen (0.2) EU/dL Ur Leukocyte Esterase (NEGATIVE) Urine RBC (NOT SEEN) /HPF Urine WBC (NOT SEEN) /HPF Ur Squamous Epith Cells (NEGATIVE) /HPF Amorphous Sediment Urine Bacteria (NEGATIVE) /HPF Urine Mucus (NEGATIVE) /LPF 11/23/17 Range/Units 21:08 WBC (4.0-10.0) x10^3/uL RBC (4.00-5.50) x10^6/uL Hgb (12.0-16.0) g/dL Hct (33.0-47.0) % MCV (78.0-93.0) fL MCH (26.0-32.0) pg MCHC (32.0-36.0) g/dL RDW Coeff of Tyrell (10.0-15.0) % Plt Count (130-400) x10^3/uL Neut % (Auto) (50.0-80.0) % Lymph % (Auto) (25.0-50.0) % Chambers % (Auto) (2.0-11.0) % Eos % (Auto) (0.0-4.0) % Baso % (Auto) (0.2-1.2) % PT (9.6-11.4) SEC INR (2.0-3.5) D-Dimer, Quantitative (<=0.58) mg/LFEU Sodium (136-145) mmol/L Potassium (3.5-5.1) mmol/L Chloride (98-107) mmol/L Carbon Dioxide (21-32) mmol/L Anion Gap (10-20) mmol/L BUN (7-18) mg/dL Creatinine (0.55-1.02) mg/dL Est Cr Clr Drug Dosing mL/min Estimated GFR (MDRD) Glucose (74-106) mg/dL Lactic Acid (0.4-2.0) mmol/L Calcium (8.5-10.1) mg/dL Corrected Calcium (8.5-10.1) mg/dL Iron (50-170) ug/dL TIBC (250-450) ug/dL % Saturation (20.0-50.0) % Ferritin (8-252) ng/mL Total Bilirubin (0.2-1.0) mg/dL AST (15-37) U/L ALT (14-59) U/L Alkaline Phosphatase (46-116) U/L Troponin I (<=0.056) ng/mL C-Reactive Protein (<=0.9) mg/dL NT-Pro-B Natriuret Pep (<=450) pg/mL Total Protein (6.4-8.2) g/dL Albumin (3.4-5.0) g/dL Globulin Albumin/Globulin Ratio Urine Color Yellow (YELLOW) Urine Appearance Clear (CLEAR) Urine pH 5.5 (5.0-8.0) Ur Specific [place] 1.025 Urine Protein Trace H (NEGATIVE) mg/dL Urine Glucose (UA) Negative (NEGATIVE) mg/dL Urine Ketones Negative (NEGATIVE) mg/dL Urine Occult Blood Negative (NEGATIVE) Urine Nitrite Negative (NEGATIVE) Urine Bilirubin Small H (NEGATIVE) Urine Urobilinogen 0.2 (0.2) EU/dL Ur Leukocyte Esterase Negative (NEGATIVE) Urine RBC 0-5 (NOT SEEN) /HPF Urine WBC 0-5 (NOT SEEN) /HPF Ur Squamous Epith Cells Rare (NEGATIVE) /HPF Amorphous Sediment Few Urine Bacteria Rare (NEGATIVE) /HPF Urine Mucus Not seen (NEGATIVE) /LPF Result Diagrams: 11/23/17 20:35 11/23/17 20:35 Problem List Initiated/Reviewed/Updated: Yes Orders Last 24hrs: Active Orders 24 hr Category Date Time Status Patient Status [ADT] Routine ADT 11/23/17 21:51 Active Patient Status [ADT] Routine ADT 11/23/17 23:06 Active EKG Documentation Completion [RC] STAT Care 11/23/17 20:26 Active Oxygen Therapy [RC] PRN Care 11/23/17 20:27 Active Oxygen Therapy [RC] PRN Care 11/23/17 23:06 Active RT Aerosol Therapy [RC] ASDIRECTED Care 11/23/17 20:29 Active VTE/DVT Education [RC] PER UNIT ROUTINE Care 11/23/17 23:06 Active Vital Signs [RC] Q4H Care 11/23/17 23:06 Active CTA Chest W WO Contrast [Ang Chest] [CT] Routine Exams 11/24/17 07:30 Ordered Chest 1V Frontal [CR] Stat Exams 11/23/17 20:27 Taken CBC W/O DIFF,HEMOGRAM [HEME] Q3D Lab 11/24/17 07:00 Ordered CBC W/O DIFF,HEMOGRAM [HEME] Q3D Lab 11/27/17 07:00 Ordered CBC W/O DIFF,HEMOGRAM [HEME] Q3D Lab 11/30/17 07:00 Ordered CBC W/O DIFF,HEMOGRAM [HEME] Q3D Lab 12/03/17 07:00 Ordered CBC W/O DIFF,HEMOGRAM [HEME] Q3D Lab 12/06/17 07:00 Ordered CBC W/O DIFF,HEMOGRAM [HEME] Q3D Lab 12/09/17 07:00 Ordered CBC W/O DIFF,HEMOGRAM [HEME] Q3D Lab 12/12/17 07:00 Ordered CULTURE BLOOD [BC] Stat Lab 11/23/17 20:35 Received CULTURE BLOOD [BC] Stat Lab 11/23/17 20:42 Received FOLATE [REF] Stat Lab 11/23/17 22:08 Ordered UA W/MICROSCOPIC [URIN] Stat Lab 11/23/17 21:08 Ordered VITAMIN B12 [REF] Stat Lab 11/23/17 20:35 Received Acetaminophen/HYDROcodone [[place] 325-5 MG] Med 11/23/17 23:08 Active 1 tab PO Q4H PRN Docusate Sodium [Colace] Med 11/24/17 08:00 Active 100 mg PO DAILY Enoxaparin [Lovenox] Med 11/23/17 23:30 Pending 60 mg SUBCUT Q12H Furosemide [Lasix] Med 11/24/17 08:00 Active 20 mg PO DAILY Levothyroxine [Synthroid] Med 11/24/17 07:00 Active 88 mcg PO ACBREAKFAST Metoprolol Succinate [Toprol XL] Med 11/24/17 08:00 Active 50 mg PO DAILY Omeprazole Med 11/24/17 20:00 Active 20 mg PO BEDTIME Sodium Chloride 0.9% [Saline Flush] Med 11/23/17 20:26 Active 10 ml FLUSH ASDIRECTED PRN amLODIPine [Norvasc] Med 11/24/17 08:00 Active 5 mg PO DAILY Blood Culture x2 Reflex Set [OM.PC] Stat Oth 11/23/17 20:26 Ordered Peripheral IV Insertion Adult [OM.PC] Routine Oth 11/23/17 20:26 Ordered Resuscitation Status Routine Resus Stat 11/23/17 23:06 Ordered Medication Orders Hydrocodone Bitart/Acetaminophen ([place] 325-5 Mg) 1 tab PO Q4H PRN PRN Reason: Pain Amlodipine Besylate (Norvasc) 5 mg PO DAILY RAVINDER Docusate Sodium (Colace) 100 mg PO DAILY RAVINDER Enoxaparin Sodium (Lovenox) 60 mg SUBCUT Q12H RAVINDER Furosemide (Lasix) 20 mg PO DAILY RAVINDER Levothyroxine Sodium (Synthroid) 88 mcg PO ACBREAKFAST RAVINDER Metoprolol Succinate (Toprol Xl) 50 mg PO DAILY RAVINDER Omeprazole (Omeprazole) 20 mg PO BEDTIME RAVINDER Sodium Chloride (Saline Flush) 10 ml FLUSH ASDIRECTED PRN PRN Reason: Keep Vein Open
[2017-11-24] MEDS: Levothyroxine 88 MCG Tab PO SCH (06:43)
[2017-11-24] MEDS: amLODIPine 5 MG Tab PO SCH (08:00)
[2017-11-24] MEDS ORDERED: Furosemide 20 MG Tab PO SCH (08:00)
[2017-11-24] MEDS: Metoprolol Succinate 50 MG Tab.ER PO SCH (08:01)
[2017-11-24] MEDS: Docusate Sodium 100 MG Cap PO SCH (08:01)
[2017-11-24] MEDS ORDERED: Iopamidol 612 MG/ML 100 ML Bottle IVPUSH ONE (11:06)
--- NOTE | 2017-11-24 15:53 | PCM.PN ---
- General Info Date of Service: 11/24/17 Admission Dx/Problem (Free Text): History: As of this afternoon she has had her CT lung which shows COPD but no pulmonary embolus. Review of her pulmonary Hx with her daughter, Mrs. Green, indicates she has never had significant tobacco exposure because the past 20 years or so she has hardly smoked any cigarettes. She did not have secondhand smoke exposure when she was young. Her father had lung damage from WW1, and her mother had asthma and was on an inhaler. We have heard from [facility] that she has been very frail, falling a lot even before her episode last night, and they are reluctant to have her come back there. Exam: -No wheezing, she still feels mildly dyspneic -Speech okay, memory is poor Impression: -Falling more frequently secondary to age and frailty; she does say that she likes the wheeled walker at [facility] better than the standard one here -Increased dyspnea, probably both from CHF (mild elevation of BNP) and COPD (CT shows COPD and she got some benefit from the inhaler Rx in the ER last night) Plan: -I would be in favor of her giving [facility] another try tomorrow if they agree to take her -Increase Lasix to 40 mg daily -Rx albuterol inhaler 2 puffs every 4 hours prn, [facility] can consider after F/U in a week whether she should also go on a long-acting anticholinergic inhaler as well -PT to assess regarding her going back to [facility] - Patient Data Vitals - Most Recent: Last Vital Signs Temp 36.4 C 11/24/17 14:00 Pulse 75 11/24/17 14:00 Resp 18 11/24/17 14:00 BP 151/72 H 11/24/17 14:00 Pulse Ox 94 L 11/24/17 14:00 Weight - Most Recent: 66.451 kg I&O - Last 24 Hours: Intake & Output 11/24/17 11/24/17 11/24/17 06:59 14:59 22:59 Intake Total 450 420 Output Total 300 Balance 150 420 Lab Results Last 24 Hours: Laboratory Results - last 24 hr 11/23/17 11/23/17 11/23/17 Range/Units 20:35 20:35 20:35 WBC 8.5 (4.0-10.0) x10^3/uL RBC 3.22 L (4.00-5.50) x10^6/uL Hgb 9.8 L (12.0-16.0) g/dL Hct 30.4 L (33.0-47.0) % MCV 94.4 H (78.0-93.0) fL MCH 30.4 (26.0-32.0) pg MCHC 32.2 (32.0-36.0) g/dL RDW Coeff of Tyrell 14.1 (10.0-15.0) % Plt Count 272 (130-400) x10^3/uL Neut % (Auto) 69.9 (50.0-80.0) % Lymph % (Auto) 11.4 L (25.0-50.0) % [place] % (Auto) 10.1 (2.0-11.0) % Eos % (Auto) 8.5 H (0.0-4.0) % Baso % (Auto) 0.1 L (0.2-1.2) % PT 9.4 L (9.6-11.4) SEC INR 0.9 L (2.0-3.5) D-Dimer, Quantitative (<=0.58) mg/LFEU Sodium 139 (136-145) mmol/L Potassium 4.3 (3.5-5.1) mmol/L Chloride 106 (98-107) mmol/L Carbon Dioxide 23 (21-32) mmol/L Anion Gap 14.3 (10-20) mmol/L BUN 29 H (7-18) mg/dL Creatinine 1.4 H (0.55-1.02) mg/dL Est Cr Clr Drug Dosing 23.52 mL/min Estimated GFR (MDRD) 35 Glucose 103 (74-106) mg/dL Lactic Acid (0.4-2.0) mmol/L Calcium 8.6 (8.5-10.1) mg/dL Corrected Calcium 9.48 (8.5-10.1) mg/dL Iron (50-170) ug/dL TIBC (250-450) ug/dL % Saturation (20.0-50.0) % Ferritin (8-252) ng/mL Total Bilirubin 0.2 (0.2-1.0) mg/dL AST 12 L (15-37) U/L ALT 15 (14-59) U/L Alkaline Phosphatase 82 (46-116) U/L Troponin I < 0.017 (<=0.056) ng/mL C-Reactive Protein 3.7 H (<=0.9) mg/dL NT-Pro-B Natriuret Pep 631 H (<=450) pg/mL Total Protein 6.8 (6.4-8.2) g/dL Albumin 2.9 L (3.4-5.0) g/dL Globulin 3.9 Albumin/Globulin Ratio 0.74 Urine Color (YELLOW) Urine Appearance (CLEAR) Urine pH (5.0-8.0) Ur Specific [place] Urine Protein (NEGATIVE) mg/dL Urine Glucose (UA) (NEGATIVE) mg/dL Urine Ketones (NEGATIVE) mg/dL Urine Occult Blood (NEGATIVE) Urine Nitrite (NEGATIVE) Urine Bilirubin (NEGATIVE) Urine Urobilinogen (0.2) EU/dL Ur Leukocyte Esterase (NEGATIVE) Urine RBC (NOT SEEN) /HPF Urine WBC (NOT SEEN) /HPF Ur Squamous Epith Cells (NEGATIVE) /HPF Amorphous Sediment Urine Bacteria (NEGATIVE) /HPF Urine Mucus (NEGATIVE) /LPF 11/23/17 11/23/17 11/23/17 Range/Units 20:35 20:35 20:35 WBC (4.0-10.0) x10^3/uL RBC (4.00-5.50) x10^6/uL Hgb (12.0-16.0) g/dL Hct (33.0-47.0) % MCV (78.0-93.0) fL MCH (26.0-32.0) pg MCHC (32.0-36.0) g/dL RDW Coeff of Tyrell (10.0-15.0) % Plt Count (130-400) x10^3/uL Neut % (Auto) (50.0-80.0) % Lymph % (Auto) (25.0-50.0) % [place] % (Auto) (2.0-11.0) % Eos % (Auto) (0.0-4.0) % Baso % (Auto) (0.2-1.2) % PT (9.6-11.4) SEC INR (2.0-3.5) D-Dimer, Quantitative 1.65 H (<=0.58) mg/LFEU Sodium (136-145) mmol/L Potassium (3.5-5.1) mmol/L Chloride (98-107) mmol/L Carbon Dioxide (21-32) mmol/L Anion Gap (10-20) mmol/L BUN (7-18) mg/dL Creatinine (0.55-1.02) mg/dL Est Cr Clr Drug Dosing mL/min Estimated GFR (MDRD) Glucose (74-106) mg/dL Lactic Acid 0.7 (0.4-2.0) mmol/L Calcium (8.5-10.1) mg/dL Corrected Calcium (8.5-10.1) mg/dL Iron 30 L (50-170) ug/dL TIBC 318 (250-450) ug/dL % Saturation 9.4 L (20.0-50.0) % Ferritin 34 (8-252) ng/mL Total Bilirubin (0.2-1.0) mg/dL AST (15-37) U/L ALT (14-59) U/L Alkaline Phosphatase (46-116) U/L Troponin I (<=0.056) ng/mL C-Reactive Protein (<=0.9) mg/dL NT-Pro-B Natriuret Pep (<=450) pg/mL Total Protein (6.4-8.2) g/dL Albumin (3.4-5.0) g/dL Globulin Albumin/Globulin Ratio Urine Color (YELLOW) Urine Appearance (CLEAR) Urine pH (5.0-8.0) Ur Specific [place] Urine Protein (NEGATIVE) mg/dL Urine Glucose (UA) (NEGATIVE) mg/dL Urine Ketones (NEGATIVE) mg/dL Urine Occult Blood (NEGATIVE) Urine Nitrite (NEGATIVE) Urine Bilirubin (NEGATIVE) Urine Urobilinogen (0.2) EU/dL Ur Leukocyte Esterase (NEGATIVE) Urine RBC (NOT SEEN) /HPF Urine WBC (NOT SEEN) /HPF Ur Squamous Epith Cells (NEGATIVE) /HPF Amorphous Sediment Urine Bacteria (NEGATIVE) /HPF Urine Mucus (NEGATIVE) /LPF 11/23/17 11/24/17 Range/Units 21:08 06:53 WBC 5.3 (4.0-10.0) x10^3/uL RBC 3.27 L (4.00-5.50) x10^6/uL Hgb 9.7 L (12.0-16.0) g/dL Hct 30.3 L (33.0-47.0) % MCV 92.7 (78.0-93.0) fL MCH 29.7 (26.0-32.0) pg MCHC 32.0 (32.0-36.0) g/dL RDW Coeff of Tyrell 14.0 (10.0-15.0) % Plt Count 215 (130-400) x10^3/uL Neut % (Auto) (50.0-80.0) % Lymph % (Auto) (25.0-50.0) % [place] % (Auto) (2.0-11.0) % Eos % (Auto) (0.0-4.0) % Baso % (Auto) (0.2-1.2) % PT (9.6-11.4) SEC INR (2.0-3.5) D-Dimer, Quantitative (<=0.58) mg/LFEU Sodium (136-145) mmol/L Potassium (3.5-5.1) mmol/L Chloride (98-107) mmol/L Carbon Dioxide (21-32) mmol/L Anion Gap (10-20) mmol/L BUN (7-18) mg/dL Creatinine (0.55-1.02) mg/dL Est Cr Clr Drug Dosing mL/min Estimated GFR (MDRD) Glucose (74-106) mg/dL Lactic Acid (0.4-2.0) mmol/L Calcium (8.5-10.1) mg/dL Corrected Calcium (8.5-10.1) mg/dL Iron (50-170) ug/dL TIBC (250-450) ug/dL % Saturation (20.0-50.0) % Ferritin (8-252) ng/mL Total Bilirubin (0.2-1.0) mg/dL AST (15-37) U/L ALT (14-59) U/L Alkaline Phosphatase (46-116) U/L Troponin I (<=0.056) ng/mL C-Reactive Protein (<=0.9) mg/dL NT-Pro-B Natriuret Pep (<=450) pg/mL Total Protein (6.4-8.2) g/dL Albumin (3.4-5.0) g/dL Globulin Albumin/Globulin Ratio Urine Color Yellow (YELLOW) Urine Appearance Clear (CLEAR) Urine pH 5.5 (5.0-8.0) Ur Specific [place] 1.025 Urine Protein Trace H (NEGATIVE) mg/dL Urine Glucose (UA) Negative (NEGATIVE) mg/dL Urine Ketones Negative (NEGATIVE) mg/dL Urine Occult Blood Negative (NEGATIVE) Urine Nitrite Negative (NEGATIVE) Urine Bilirubin Small H (NEGATIVE) Urine Urobilinogen 0.2 (0.2) EU/dL Ur Leukocyte Esterase Negative (NEGATIVE) Urine RBC 0-5 (NOT SEEN) /HPF Urine WBC 0-5 (NOT SEEN) /HPF Ur Squamous Epith Cells Rare (NEGATIVE) /HPF Amorphous Sediment Few Urine Bacteria Rare (NEGATIVE) /HPF Urine Mucus Not seen (NEGATIVE) /LPF Med Orders - Current: Current Medications Hydrocodone Bitart/Acetaminophen ([place] 325-5 Mg) 1 tab PO Q4H PRN PRN Reason: Pain Albuterol (Ventolin Hfa) 2 gm INH Q4H PRN PRN Reason: Shortness of Breath Amlodipine Besylate (Norvasc) 5 mg PO DAILY [facility] Last Admin: 11/24/17 08:00 Dose: 5 mg Docusate Sodium (Colace) 100 mg PO DAILY [facility] Last Admin: 11/24/17 08:01 Dose: 100 mg Furosemide (Lasix) 40 mg PO DAILY [facility] Levothyroxine Sodium (Synthroid) 88 mcg PO ACBREAKFAST [facility] Last Admin: 11/24/17 06:43 Dose: 88 mcg Metoprolol Succinate (Toprol Xl) 50 mg PO DAILY [facility] Last Admin: 11/24/17 08:01 Dose: 50 mg Omeprazole (Omeprazole) 20 mg PO BEDTIME [facility] Sodium Chloride (Saline Flush) 10 ml FLUSH ASDIRECTED PRN PRN Reason: Keep Vein Open Discontinued Medications Albuterol/Ipratropium (Duoneb 3.0-0.5 Mg/3 Ml) 3 ml NEB ONETIME ONE Stop: 11/23/17 20:30 Last Admin: 11/23/17 20:32 Dose: 3 ml Enoxaparin Sodium (Lovenox) 60 mg SUBCUT BEDTIME [facility] Enoxaparin Sodium (Lovenox) 60 mg SUBCUT ONETIME ONE Stop: 11/23/17 23:46 Last Admin: 11/23/17 23:59 Dose: 60 mg Furosemide (Lasix) 20 mg PO DAILY [facility] Last Admin: 11/24/17 08:00 Dose: 20 mg Furosemide (Lasix) 40 mg PO ONETIME ONE Stop: 11/23/17 23:26 Last Admin: 11/23/17 23:58 Dose: 40 mg Iopamidol (Isovue-300 (61%)) 100 ml IVPUSH ONETIME ONE Stop: 11/24/17 11:07 Last Admin: 11/24/17 11:17 Dose: 100 ml Methylprednisolone Sodium Succinate (Solu-Medrol) 125 mg IV ONETIME ONE Stop: 11/23/17 21:38 Last Admin: 11/23/17 21:55 Dose: 125 mg - Problem List Review Problem List Initiated/Reviewed/Updated: Yes - My Orders Last 24 Hours: My Active Orders 11/23/17 23:06 Patient Status [ADT] Routine Oxygen Therapy [RC] PRN VTE/DVT Education [RC] .PRN Vital Signs [RC] 06,10,14,18,,02 Resuscitation Status Routine 11/23/17 23:08 Acetaminophen/HYDROcodone [[place] 325-5 MG] 1 tab PO Q4H PRN 11/24/17 06:53 FOLATE [REF] Routine 11/24/17 07:00 Levothyroxine [Synthroid] 88 mcg PO ACBREAKFAST 11/24/17 07:30 CTA Chest W WO Contrast [Ang Chest] [CT] Routine 11/24/17 08:00 Docusate Sodium [Colace] 100 mg PO DAILY Metoprolol Succinate [Toprol XL] 50 mg PO DAILY amLODIPine [Norvasc] 5 mg PO DAILY 11/24/17 13:49 PT Evaluation and Treatment [CONS] Routine 11/24/17 14:51 Consult to Offline Editor [CONS] Routine 11/24/17 15:41 Albuterol [Ventolin HFA] 2 gm INH Q4H PRN 11/24/17 20:00 Omeprazole 20 mg PO BEDTIME 11/25/17 08:00 Furosemide [Lasix] 40 mg PO DAILY
[2017-11-24] MEDS: Omeprazole 20 MG Cap.CR PO SCH (19:53)
[2017-11-24] MEDS ORDERED: Enoxaparin 60 MG/0.6 ML Syringe SUBCUT SCH (20:00)
[2017-11-24] MEDS ORDERED: Albuterol 0.083% 2.5 MG/3 ML Neb Soln INH PRN (20:00)
[2017-11-25] MEDS: Levothyroxine 88 MCG Tab PO SCH (06:34)
[2017-11-25] MEDS: Metoprolol Succinate 50 MG Tab.ER PO SCH (08:19)
[2017-11-25] MEDS: Furosemide 40 MG Tab PO SCH (08:20)
[2017-11-25] MEDS: Docusate Sodium 100 MG Cap PO SCH (08:20)
[2017-11-25] MEDS: amLODIPine 5 MG Tab PO SCH (08:20)
--- NOTE | 2017-11-25 15:30 | PCM.PN ---
- General Info Date of Service: 11/25/17 Admission Dx/Problem (Free Text): History: As noted yesterday her Lovenox was stopped when the CT showed no evidence of pulmonary embolus. She does have COPD, feels like she gets wheezy, even notices sometimes that the no As of wheezing keeps her awake. She feels like the inhaler treatments were helpful, these were given with nebulizer and not by MDI. It is unlikely she would be able to use a MDI because of the arthritis in her hands. Even before this admission [facility] had expressed reservations about her living there because of her falling and weakness, we have now heard that there are not very willing to take her back, and daughter is talking with them but also checking out rooms at [facility] skilled nursing. She had a Physical Therapy assessment this afternoon and her walking is about back to where it was before the admission, not very good, and daughter feels she is back to baseline also. Exam: -Sitting in chair, holds herself up OK -Alert, memory is poor -Heart sounds normal and regular -No respiratory distress, but does have coarse expiratory wheezes -No ankle edema Impression: -Admitted for dyspnea, probably both from his CHF and COPD, this noted from her CT -She is now on Lasix 40 mg instead of 20, got symptomatic improvement from inhaled albuterol, should get on something by nebulizer regularly, will not be able to use MDI -Still not known if she can go back to [facility] or whether she needs skilled nursing, [facility] Plan: -Add DuoNeb by nebulizer q 8 hours -Continue p.r.n. albuterol, though very unlikely to need it when getting the DuoNeb -Continue Lasix 40 mg daily -Deferred discharge until appropriate placing can be arranged tomorrow - Patient Data Vitals - Most Recent: Last Vital Signs Temp 37.0 C 11/25/17 14:00 Pulse 85 11/25/17 14:00 Resp 20 11/25/17 14:00 BP 139/69 11/25/17 14:00 Pulse Ox 97 11/25/17 14:00 Weight - Most Recent: 66.791 kg I&O - Last 24 Hours: Intake & Output 11/25/17 11/25/17 11/25/17 06:59 14:59 22:59 Intake Total 200 360 Output Total 150 Balance 50 360 Lab Results Last 24 Hours: Laboratory Results - last 24 hr 11/23/17 11/24/17 Range/Units 20:35 06:53 Vitamin B12 244 (180-914) pg/mL Folate 10.8 ng/mL [place] Results Last 24 Hours: Microbiology 11/23/17 20:42 Aerobic Blood Culture - Preliminary Blood - Venous - Lab Draw NO GROWTH AFTER 1 DAY Anaerobic Blood Culture - Preliminary NO GROWTH AFTER 1 DAY 11/23/17 20:35 Aerobic Blood Culture - Preliminary Blood - Venous NO GROWTH AFTER 1 DAY Anaerobic Blood Culture - Preliminary NO GROWTH AFTER 1 DAY Med Orders - Current: Current Medications Hydrocodone Bitart/Acetaminophen ([place] 325-5 Mg) 1 tab PO Q4H PRN PRN Reason: Pain Albuterol (Proventil Neb Soln) 2.5 mg INH Q4H PRN PRN Reason: Shortness of Breath Last Admin: 11/24/17 22:03 Dose: 2.5 mg Albuterol/Ipratropium (Duoneb 3.0-0.5 Mg/3 Ml) 3 ml NEB Q8HRRT [facility] Amlodipine Besylate (Norvasc) 5 mg PO DAILY [facility] Last Admin: 11/25/17 08:20 Dose: 5 mg Docusate Sodium (Colace) 100 mg PO DAILY [facility] Last Admin: 11/25/17 08:20 Dose: 100 mg Furosemide (Lasix) 40 mg PO DAILY [facility] Last Admin: 11/25/17 08:20 Dose: 40 mg Levothyroxine Sodium (Synthroid) 88 mcg PO ACBREAKFAST [facility] Last Admin: 11/25/17 06:34 Dose: 88 mcg Metoprolol Succinate (Toprol Xl) 50 mg PO DAILY [facility] Last Admin: 11/25/17 08:19 Dose: 50 mg Omeprazole (Omeprazole) 20 mg PO BEDTIME [facility] Last Admin: 11/24/17 19:53 Dose: 20 mg Sodium Chloride (Saline Flush) 10 ml FLUSH ASDIRECTED PRN PRN Reason: Keep Vein Open Discontinued Medications Albuterol/Ipratropium (Duoneb 3.0-0.5 Mg/3 Ml) 3 ml NEB ONETIME ONE Stop: 11/23/17 20:30 Last Admin: 11/23/17 20:32 Dose: 3 ml Enoxaparin Sodium (Lovenox) 60 mg SUBCUT BEDTIME [facility] Enoxaparin Sodium (Lovenox) 60 mg SUBCUT ONETIME ONE Stop: 11/23/17 23:46 Last Admin: 11/23/17 23:59 Dose: 60 mg Furosemide (Lasix) 20 mg PO DAILY [facility] Last Admin: 11/24/17 08:00 Dose: 20 mg Furosemide (Lasix) 40 mg PO ONETIME ONE Stop: 11/23/17 23:26 Last Admin: 11/23/17 23:58 Dose: 40 mg Iopamidol (Isovue-300 (61%)) 100 ml IVPUSH ONETIME ONE Stop: 11/24/17 11:07 Last Admin: 11/24/17 11:17 Dose: 100 ml Methylprednisolone Sodium Succinate (Solu-Medrol) 125 mg IV ONETIME ONE Stop: 11/23/17 21:38 Last Admin: 11/23/17 21:55 Dose: 125 mg - Problem List Review Problem List Initiated/Reviewed/Updated: Yes - My Orders Last 24 Hours: My Active Orders 11/24/17 14:51 Consult to Fuel Pilot Engineer [CONS] Routine 11/24/17 20:00 Albuterol [Proventil Neb Soln] 2.5 mg INH Q4H PRN Omeprazole 20 mg PO BEDTIME 11/25/17 08:00 Furosemide [Lasix] 40 mg PO DAILY 11/25/17 15:25 RT Aerosol Therapy [RC] ASDIRECTED 11/25/17 23:00 Albuterol/Ipratropium [DuoNeb 3.0-0.5 MG/3 ML] 3 ml NEB Q8HRRT 11/25/17 Lunch Regular Diet [DIET]
[2017-11-25] MEDS ORDERED: Melatonin 3 MG Tab PO PRN (20:11)
[2017-11-25] MEDS: Omeprazole 20 MG Cap.CR PO SCH (20:25)
[2017-11-25] MEDS: Albuterol/Ipratropium 3.0-0.5 MG/3 ML Neb Soln NEB SCH (22:03)
[2017-11-26] MEDS: Albuterol/Ipratropium 3.0-0.5 MG/3 ML Neb Soln NEB SCH (07:06)
[2017-11-26] MEDS: Levothyroxine 88 MCG Tab PO SCH (07:48)
[2017-11-26] MEDS: Furosemide 40 MG Tab PO SCH (07:48)
[2017-11-26] MEDS: amLODIPine 5 MG Tab PO SCH (07:49)
[2017-11-26] MEDS: Docusate Sodium 100 MG Cap PO SCH (07:49)
[2017-11-26] MEDS: Metoprolol Succinate 50 MG Tab.ER PO SCH (07:49)
--- NOTE | 2017-11-26 13:07 | PCM.DCSUM1 ---
Discharge Summary - Discharge Data Discharge Date: 11/26/17 Discharge Disposition: DC/Tfer to SNF 03 Condition: Good - Patient Summary/Data Consults: Consultations 11/24/17 13:49 PT Evaluation and Treatment [CONS] Routine 11/24/17 14:51 Consult to Telephone Directory Distributor Driver [CONS] Routine - Discharge Plan Home Medications: Home Meds Levothyroxine [Synthroid] 88 mcg PO ACBREAKFAST 08/14/14 [History] Metoprolol Succinate 50 mg PO DAILY 08/14/14 [History] amLODIPine [Norvasc] 5 mg PO DAILY tablet 02/03/15 [Rx] Potassium Chloride [Klor-Con M20] 20 meq PO DAILY 02/14/15 [History] Furosemide 20 mg PO DAILY 04/30/16 [History] Acetaminophen/HYDROcodone [[place] 325-5 MG] 1 tab PO Q4H PRN 11/18/17 [History] Docusate Sodium 100 mg PO DAILY 11/18/17 [History] Omeprazole 20 mg PO BEDTIME 11/18/17 [History] Sennosides/Docusate Sodium [Senna Plus Tablet] 1 - 2 tab PO ASDIRECTED PRN 11/18 [History] Albuterol [Proventil Neb Soln] 2.5 mg INH Q4H PRN neb 11/26/17 [Rx] Albuterol/Ipratropium [DuoNeb 3.0-0.5 MG/3 ML] 3 ml NEB Q8HRRT neb 11/26/17 [Rx ] Forms: ED Department Discharge Referrals: Meme Camargo PA-C [Primary Care Provider] - - Discharge Summary/Plan Comment Discharge Summary/Plan Comment: Final Diagnoses: -Dyspnea secondary to COPD -CHF -Alzheimer-type dementia, intolerant to Aricept -Severe hearing loss, dependent on hearing aids Secondary diagnoses: -Lymphocytic colitis -Insomnia -Hypothyroidism -Hypertension, controlled -Hyperlipidemia, intolerant to medication -DJD, especially hands Reason for admission: Dyspnea. She was at [facility] assisted living, family usually with her because of increasing frailty, staff at [place] thinking of excluding her because of frequent falls and need for constant supervision. She went to bed on 11/23/17, grandson was there with her, and she awoke quite dyspneic, it seemed the dyspnea came on suddenly and she was unable to sleep because of this, brought to ER by ambulance. She improved with a nebulizer Rx of bronchodilator but was still somewhat dyspneic and was admitted. Initial findings: CXR unremarkable, lab unremarkable except for elevated BNP of 631 (normal <450) and elevated d-dimer of 1.65 (normal <0.58). Mildly dyspneic, but lung sounds unremarkable. She did not have any tenderness or swelling of her lower legs or any other evidence of DVT. Treatment and Course in Hospital: Because of her sudden dyspnea and elevated d-dimer, she was started on Lovenox 60 mg every 12 hours (slightly low, her dose shouldve been 68 mg), and in the morning had CT of her lung which showed no evidence of pulmonary embolus, but did show COPD. It was noted she never was a smoker but she does C/O fairly frequently of dyspnea and wheezing. Her Lovenox was D/Cd, she was given when necessary albuterol and says this helps her breathing, so this was continued along with DuoNeb TID. She has arthritis in her hands and will not be able to manage an MDI. Her Lasix was also increased from 20 mg up to 40 mg daily. In preparation for discharge, [facility] contacted and they discussed with family, that they felt it inappropriate to come back to [place], so family arranged admission to fpc, [facility]. Condition on discharge: -Still severe hearing loss, uses hearing aids -Heart sounds normal and regular -Lungs actually clear now, but of course expiratory wheezes heard yesterday are gone -No ankle edema -Dementia, able to speak but unable to converse about her problems Plan: -T/F to [facility] -Changes from her previous medications are the initiation of DuoNeb 1 amp TID, albuterol every 4 hours when necessary dyspnea, increasing Lasix from 20 up to 40 mg daily -Presume DNR status -[facility] and [facility] will care for her there, they have been her Primary Care previously - Patient Data Vitals - Most Recent: Last Vital Signs Temp 36.6 C 11/26/17 10:00 Pulse 68 11/26/17 10:00 Resp 16 11/26/17 10:00 BP 137/60 11/26/17 10:00 Pulse Ox 96 11/26/17 10:00 Weight - Most Recent: 66.451 kg I&O - Last 24 hours: Intake & Output 11/25/17 11/26/17 11/26/17 22:59 06:59 14:59 Intake Total 100 200 340 Output Total 400 Balance 100 200 -60 [place] Results - Last 24 hrs: Microbiology 11/23/17 20:42 Aerobic Blood Culture - Preliminary Blood - Venous - Lab Draw NO GROWTH AFTER 2 DAYS Anaerobic Blood Culture - Preliminary NO GROWTH AFTER 2 DAYS 11/23/17 20:35 Aerobic Blood Culture - Preliminary Blood - Venous NO GROWTH AFTER 2 DAYS Anaerobic Blood Culture - Preliminary NO GROWTH AFTER 2 DAYS Med Orders - Current: Current Medications Hydrocodone Bitart/Acetaminophen ([place] 325-5 Mg) 1 tab PO Q4H PRN PRN Reason: Pain Albuterol (Proventil Neb Soln) 2.5 mg INH Q4H PRN PRN Reason: Shortness of Breath Last Admin: 11/24/17 22:03 Dose: 2.5 mg Albuterol/Ipratropium (Duoneb 3.0-0.5 Mg/3 Ml) 3 ml NEB Q8HRRT [facility] Last Admin: 11/26/17 07:06 Dose: 3 ml Amlodipine Besylate (Norvasc) 5 mg PO DAILY [facility] Last Admin: 11/26/17 07:49 Dose: 5 mg Docusate Sodium (Colace) 100 mg PO DAILY [facility] Last Admin: 11/26/17 07:49 Dose: 100 mg Furosemide (Lasix) 40 mg PO DAILY [facility] Last Admin: 11/26/17 07:48 Dose: 40 mg Levothyroxine Sodium (Synthroid) 88 mcg PO DAILY [facility] Melatonin (Melatonin) 3 mg PO BEDTIME PRN PRN Reason: Insomnia Last Admin: 11/25/17 20:25 Dose: 3 mg Metoprolol Succinate (Toprol Xl) 50 mg PO DAILY [facility] Last Admin: 11/26/17 07:49 Dose: 50 mg Omeprazole (Omeprazole) 20 mg PO BEDTIME [facility] Last Admin: 11/25/17 20:25 Dose: 20 mg Sodium Chloride (Saline Flush) 10 ml FLUSH ASDIRECTED PRN PRN Reason: Keep Vein Open Discontinued Medications Albuterol/Ipratropium (Duoneb 3.0-0.5 Mg/3 Ml) 3 ml NEB ONETIME ONE Stop: 11/23/17 20:30 Last Admin: 11/23/17 20:32 Dose: 3 ml Enoxaparin Sodium (Lovenox) 60 mg SUBCUT BEDTIME [facility] Enoxaparin Sodium (Lovenox) 60 mg SUBCUT ONETIME ONE Stop: 11/23/17 23:46 Last Admin: 11/23/17 23:59 Dose: 60 mg Furosemide (Lasix) 20 mg PO DAILY [facility] Last Admin: 11/24/17 08:00 Dose: 20 mg Furosemide (Lasix) 40 mg PO ONETIME ONE Stop: 11/23/17 23:26 Last Admin: 11/23/17 23:58 Dose: 40 mg Iopamidol (Isovue-300 (61%)) 100 ml IVPUSH ONETIME ONE Stop: 11/24/17 11:07 Last Admin: 11/24/17 11:17 Dose: 100 ml Levothyroxine Sodium (Synthroid) 88 mcg PO ACBREAKFAST [facility] Last Admin: 11/26/17 07:48 Dose: 88 mcg Methylprednisolone Sodium Succinate (Solu-Medrol) 125 mg IV ONETIME ONE Stop: 11/23/17 21:38 Last Admin: 11/23/17 21:55 Dose: 125 mg
[2017-11-26 13:14] VITALS: BP 141/62
[2017-11-27] MEDS ORDERED: Levothyroxine 88 MCG Tab PO SCH (08:00)
== END 2017-11-26 13:40 | DRG 191 ==
LOC: VM.ED 20:10 → VM.MS 21:51
PROVIDERS: ADMIT Family Medicine; ATTEND Internal Medicine
DX: J44.9 Chronic obstructive pulmonary disease, unspecified (principal); I13.0 Hypertensive heart and chronic kidney disease with heart failure and stage 1 through stage 4 chronic kidney disease, or unspecified chronic kidney disease; I50.32 Chronic diastolic (congestive) heart failure; N18.9 Chronic kidney disease, unspecified; E78.00 Pure hypercholesterolemia, unspecified; G30.9 Alzheimer's disease, unspecified; H54.7 Unspecified visual loss; N18.3 Chronic kidney disease, stage 3 (moderate); F02.80 Dementia in other diseases classified elsewhere, unspecified severity, without behavioral disturbance, psychotic disturbance, mood disturbance, and anxiety; H91.90 Unspecified hearing loss, unspecified ear; Z88.8 Allergy status to other drugs, medicaments and biological substances; Z79.899 Other long term (current) drug therapy; M19.042 Primary osteoarthritis, left hand; M19.041 Primary osteoarthritis, right hand; E03.9 Hypothyroidism, unspecified; E78.5 Hyperlipidemia, unspecified; G47.00 Insomnia, unspecified; K52.832 Lymphocytic colitis; Z66 Do not resuscitate; R29.6 Repeated falls; M81.0 Age-related osteoporosis without current pathological fracture; Z87.440 Personal history of urinary (tract) infections; Z85.828 Personal history of other malignant neoplasm of skin; Z83.6 Family history of other diseases of the respiratory system; Z87.891 Personal history of nicotine dependence
CPT/HCPCS: 36415; 71045; 71275; 80053; 81001; 82607; 82728; 82746; 83540; 83550; 83605; 83880; 84484; 85025; 85027; 85379; 85610; 86140; 87040; 93005; 93010; 94640; 94760; 96374; 97161-GP; 97530-GP; 99284-GF-25; 99285; A9270-GY; J1650; J2930; J7620-GY; Q9967